=== PATIENT | female | born 1990 | race African-American/Black ===

== ENCOUNTER 2023-08-29 05:53 | Emergency (ER) | payer BC ==
--- OUTSIDE RECORDS SUMMARY | 2023-08-29 05:58 | XMS REPORT | Clinical Summary ---
:1990 Author Organization [facility] MD Lou [facility] Address [address] [place] [address] Care Team Providers Name Role Phone Marjorie Vee MD Unavailable [phone] Yvan Isaac MD Primary Care Provider Allergies No known active allergies Medications Medication Sig Dispensed Refills Start Date End Date Status ondansetron (ZOFRAN-ODT) Dissolve 1 30 tablet 5 08/20/2023 Active 8 mg disintegrating tablet (8 mg) on tabletIndications: the tongue every Adenocarcinoma of small 8 (eight) hours intestine as needed for nausea or vomiting (First choice). prochlorperazine Take 1 tablet 60 tablet 5 08/20/2023 Active (Compazine) 10 mg (10 mg) by mouth tabletIndications: every 6 (six) Adenocarcinoma of small hours as needed intestine for nausea or vomiting. 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 Encounters Date Type Department Care Team Description 08/25/2023 Infusion Ambulatory Treatment Yvan Isaac, Adenoca rcinoma of 5:00 PM [facility] Center - Anna Marie joyner MD small intestine [address] [facility], [address]th Tor or [place] [address] 08/25/2023 Travel 08/25/2023 Orders Only Gastrointestinal [address]ra [address] Diao Stella, Adenocarcinoma of [address] [facility] small intestine Main Bldg, 7th Floor (Primary Dx) [place] [address] 08/23/2023 Infusion Ambulatory Treatment Yvan Isaac, Adenoca rcinoma of 3:00 PM [facility]ERCISE INSTRUCT Center - [facility] small intestine [address] Ana, (Primary Dx) [facility], 8th Tor or Gertrude Esteban RN Elevator T - [place] [address] 08/23/2023 Hospital Encounter Diagnostic Laboratory Yvan Isaac, Adenocarcinoma of small intestine; 1:25 PM EXERCISE INSTRUCT Center Secondary malignant neoplasm of bilateral ovaries - [address] Discharge Disposition: Home 08/23/2023 [facility] 11:59 PM [place] [id number] EXERCISE INSTRUCT 08/23/2023 Travel 08/23/2023 Orders Only Ambulatory Treatment Flori Lee ry malignant Center - [facility] RAUL Dyer neoplasm of bilateral [address] ovaries (Primary Dx) [facility], 8th [place] [address] 08/09/2023 Ancillary X-Ray Outpatient Ezra ter Yvan Isaac, Malignant neoplasm of 4:30 PM EXERCISE INSTRUCT Procedure [address] colon, not otherwise [facility], 7th Tor or specified Elevator T [place] [id number] 08/09/2023 Follow-Up Colorectal Center - Yvan Isaac, Adenocar cinoma of small intestine (Primary Dx); 1:20 PM EXERCISE INSTRUCT Medical Oncology Malignant neoplasm of colon, not otherwise specified; [address] Secondary malignant neoplasm of retroperitoneum and peritoneum; Main Bldg, 7th Floor Secondary malignant neoplasm of [place] [address] 08/09/2023 Travel 08/02/[address] Imaging Ryan, Malignant neoplasm of 4:45 PM EXERCISE INSTRUCT Procedure [address] SHELBY Thomas colon, not otherwise [facility], 7th Tor [place] [address] 08/02/2023 Hospital Encounter Diagnostic Laboratory Ryan Malignant neoplasm of colon, not otherwise specified 10:45 AM [place] SHELBY Thomas Discharge Disposition: Home EXERCISE INSTRUCT - [address] 08/02/2023 Main Bldg, Elevator A 11:59 [place] [address] EXERCISE INSTRUCT 08/02/2023 Office Visit Colorectal Center - Yvan Isaac, Adenocar cinoma of 9:20 AM EXERCISE INSTRUCT Medical Oncology small intestine [address] (Primary Dx) Main Bldg, 7th [place] [address] 08/02/2023 Travel 08/01/2023 Orders Only Colorectal Center - Lois Davis t neoplasm of Medical Oncology SHELBY Thomas colon, not otherwise [address] specified (Primary Main Bldg, 7th Floor Dx) [place] [address] 08/01/2023 Orders Only Colorectal Center - Lois Davis t neoplasm of Medical Oncology SHELBY Thomas colon, not otherwise [address] specified (Primary Main Bldg, 7th Floor Dx) [place] [address] 07/31/2023 NPR MDA PATIENT ACCESS Yvan Isaac, 9:00 AM MAGALY JOHNSON 07/11/2023 Lab Requisition [facility] Satish [facility]es [facility] Ancillary Image Library Yvan Isaac, Cancer 2:45 AM CDT [place] [address] 07/07/2023 Ancillary Image Library Yvan Isaac, Cancer 2:40 AM CDT [place] [address] 07/07/2023 Ancillary Image Library Yvan Isaac, Cancer 2:35 AM CDT [place] [address] 07/07/2023 Ancillary Image Library Yvan Isaac, Cancer 2:30 AM CDT [place] [address] 07/07/2023 Ancillary Image Library Yvan Isaac, Cancer 2:25 AM CDT [place] [address] 07/07/2023 Ancillary Image Library Yvan Isaac, Cancer 2:20 AM CDT Procedure [address] [place] [address] 07/07/2023 Ancillary Image Library Yvan Isaac, Cancer 2:15 AM CDT Procedure [address] [place] [address] 07/07/2023 Ancillary Image Library Yvan Isaac, Cancer 2:10 AM CDT Procedure [address] [place] [address] 07/07/2023 Ancillary Image Library Yvan Isaac, Cancer 2:05 AM CDT Procedure [address] [place] [address] 07/07/2023 Ancillary Image Library Yvan Isaac, Cancer 2:00 AM CDT Procedure [address] [place] [address] 07/07/2023 Ancillary Image Library Yvan Isaac, Cancer 1:55 AM CDT Procedure [address] [place] [address] 06/30/2023 Travel after 08/29/2022 Surgical History Surgery Date Site/Laterality Comments LAPAROSCOPIC RESECTION SMALL BOWEL 01/23/2023 - 02/22/2023 OOPHORECTOMY BILATERAL 06/27/2023 Bilateral Medical History Medical History Date Comments Essential (primary) hypertension 2017 Anxiety disorder 2015 Family History Medical History Relation Name Comments Lung cancer Father Breast cancer Paternal Aunt Lung cancer Paternal Aunt Relation Name Status Comments Father Paternal Aunt Social History Tobacco Use Types Packs/Day Years Used Date Smoking Tobacco: Never Passive Smoke Exposure: Never Smokeless Tobacco: Never Tobacco Cessation: Counseling Given: No Alcohol Use Standard Drinks/Week Comments Not Currently 0 (1 standard drink = 0.6 oz pure alcoho l) social Sex and Gender Information Value Date Recorded Sex Assigned at Not on file Gender Identity Not on file Sexual Orientation Not on file Job Start Date Occupation Industry Not on file Not on file Not on file Obstetrics History Last Filed Vital Signs Vital Sign Reading Time Taken Comments Blood Pressure 159/78 08/25/2023 5:21 PM EXERCISE INSTRUCT Pulse 58 08/25/2023 5:21 PM EXERCISE INSTRUCT Temperature 36.7 C (98.1 F) 08/25/2023 5:21 PM EXERCISE INSTRUCT Respiratory Rate 20 08/25/2023 5:21 PM EXERCISE INSTRUCT Oxygen Saturation 91% 08/25/2023 5:21 PM EXERCISE INSTRUCT Inhaled Oxygen Concentration - - Weight 62.5 kg (137 lb 12.6 oz) 08/25/2023 5:23 PM EXERCISE INSTRUCT Height 172.7 cm (5' 8") 08/02/2023 9:14 AM EXERCISE INSTRUCT Body Mass Index 20.95 08/02/2023 9:14 AM EXERCISE INSTRUCT Plan of Treatment Date Type Department Care Team Description 08/29/[address] Yvan Isaac MD 10:00 AM EXERCISE INSTRUCT [address] Main Bldg, [address]th [place] [address] [place] [address] [phone] 09/06/2023 1:15 Appointment Diagnostic Laboratory Yvan Isaac MD PM EXERCISE INSTRUCT Center [address] [place] [address] Main dg, [place] [address] 09/06/2023 2:20 Follow-Up Colorectal Center - Medical Yvan Isaac MD PM EXERCISE INSTRUCT Oncology [address] [place] [address] Main dg, 7th [place] [address] 09/06/2023 3:00 Infusion Ambulatory Treatment Center Yvan Isaac MD PM EXERCISE INSTRUCT - [facility] [address] [place] [address] [facility], 8th Tor or Elevator T - Check In at [phone] (Fa x) [place] [address] Health Maintenance Due Date Last Done Comments COVID-19 Vaccination (#1) 1996 Procedures Procedure Name Priority Date/Time Associated Diagnosis Comme nts .CBC Routine 08/23/2023 1:51 Adenocarcinoma of Results for this PM EXERCISE INSTRUCT small intestine procedure ar e in the results section. HUMAN CHORIONIC STAT 08/23/2023 1:51 Secondary malignant Re sults for this GONADOTROPIN, PM EXERCISE INSTRUCT neoplasm of bilateral proce dure are in QUALITATIVE ovaries the results section. CARCINOEMBRYONIC Routine 08/23/2023 1:51 Adenocarcinoma of Res ults for this ANTIGEN PM EXERCISE INSTRUCT small intestine procedure ar e in the results section. PHOSPHORUS LEVEL Routine 08/23/2023 1:51 Adenocarcinoma of Res ults for this PM EXERCISE INSTRUCT small intestine procedure ar e in the results section. MAGNESIUM LEVEL Routine 08/23/2023 1:51 Adenocarcinoma of Resu lts for this PM EXERCISE INSTRUCT small intestine procedure ar e in the results section. LACTATE DEHYDROGENASE Routine 08/23/2023 1:51 Adenocarcinoma o f Results for this PM EXERCISE INSTRUCT small intestine procedure ar e in the results section. COMPREHENSIVE METABOLIC Routine 08/23/2023 1:51 Adenocarcinoma of Results for this PANEL PM EXERCISE INSTRUCT small intestine procedure ar e in the results section. COMPLETE BLOOD COUNT W/ Routine 08/23/2023 1:51 Adenocarcinoma of Results for this DIFFERENTIAL PM EXERCISE INSTRUCT small intestine procedure ar e in the results section. XR CHEST 2 VW Routine 08/09/2023 3:57 Malignant neoplasm of Re sults for this PM EXERCISE INSTRUCT colon, not otherwise procedu re are in specified the results section. VERIFY CATHETER TIP Routine 08/09/2023 1:20 Malignant neoplasm of Results for this PLACEMENT PM EXERCISE INSTRUCT colon, not otherwise procedu re are in specified the results section. CT CHEST ABDOMEN PELVIS Routine 08/02/2023 6:54 Malignant neop lasm of Results for this W WO CONTRAST PM EXERCISE INSTRUCT colon, not otherwise proced ure are in specified the results section. .CBC Routine 08/02/2023 3:14 Malignant neoplasm of Res ults for this PM EXERCISE INSTRUCT colon, not otherwise procedu re are in specified the results section. HP LB LIQUID BIOPSY Routine 08/02/2023 3:14 Malignant neoplasm of Results for this PANEL V1 INTERPRETATION PM EXERCISE INSTRUCT colon, not otherw ise procedure are in AND REPORT specified the results section. PHOSPHORUS LEVEL Routine 08/02/2023 3:14 Malignant neoplasm of Results for this PM EXERCISE INSTRUCT colon, not otherwise procedu re are in specified the results section. MAGNESIUM LEVEL Routine 08/02/2023 3:14 Malignant neoplasm of Results for this PM EXERCISE INSTRUCT colon, not otherwise procedu re are in specified the results section. LACTATE DEHYDROGENASE Routine 08/02/2023 3:14 Malignant neopla sm of Results for this PM EXERCISE INSTRUCT colon, not otherwise procedu re are in specified the results section. COMPREHENSIVE METABOLIC Routine 08/02/2023 3:14 Malignant neop lasm of Results for this PANEL PM EXERCISE INSTRUCT colon, not otherwise procedu re are in specified the results section. COMPLETE BLOOD COUNT W/ Routine 08/02/2023 3:14 Malignant neop lasm of Results for this DIFFERENTIAL PM EXERCISE INSTRUCT colon, not otherwise procedu re are in specified the results section. CARCINOEMBRYONIC Routine 08/02/2023 3:14 Malignant neoplasm of Results for this ANTIGEN PM EXERCISE INSTRUCT colon, not otherwise procedu re are in specified the results section. CARBOHYDRATE ANTIGEN Routine 08/02/2023 3:14 Malignant neoplas m of Results for this 19-9 PM EXERCISE INSTRUCT colon, not otherwise procedu re are in specified the results section. CANCER ANTIGEN 125 Routine 08/02/2023 3:14 Malignant neoplasm of Results for this PM EXERCISE INSTRUCT colon, not otherwise procedu re are in specified the results section. PATHOLOGY OUTSIDE Routine 06/27/2023 Results fo r this INTERPRETATION procedure are in the results section. OSI CT CHEST ABDOMEN Routine 06/08/2023 4:47 Cancer Resu lts for this PELVIS AM CDT procedure are i n the results section. OSI PET CT SKULL TO MID Routine 04/14/2023 4:47 Cancer R esults for this THIGH AM CDT procedure are i n the results section. OSI INTERVENTIONAL Routine 04/06/2023 4:48 Cancer Result s for this AM CDT procedure are i n the results section. OSI CHEST Routine 04/06/2023 4:48 Cancer Results for this AM CDT procedure are i n the results section. OSI US PELVIC Routine 04/03/2023 4:47 Cancer Results for this AM CDT procedure are i n the results section. OSI CT CHEST ABDOMEN Routine 03/31/2023 4:47 Cancer Resu lts for this PELVIS AM CDT procedure are i n the results section. OSI CT BRAIN Routine 03/08/2023 4:49 Cancer Results for this AM CDT procedure are i n the results section. OSI CT CHEST Routine 03/08/2023 4:49 Cancer Results for this AM CDT procedure are i n the results section. OSI ABDOMEN Routine 02/21/2023 4:48 Cancer Results for this AM CDT procedure are i n the results section. OSI CT ABDOMEN AND Routine 02/20/2023 4:48 Cancer Result s for this PELVIS AM CDT procedure are i n the results section. OSI ABDOMEN Routine 02/17/2023 4:48 Cancer Results for this AM CDT procedure are i n the results section. after 08/29/2022 Results (ABNORMAL) .CBC (08/23/2023 1:51 PM EXERCISE INSTRUCT)Only the most recent of2 resultswithin the time period is included. [facility] Method Time Signature White Blood Cell 5.4 4.1 - 08/23/2023 [facility] 10.5 K/uL 2:11 PM EXERCISE INSTRUCT Red Blood Cell 4.08 3.99 - 08/23/2023 [facility] 5.46 M/uL 2:11 PM EXERCISE INSTRUCT Hemoglobin 10.7 (L) 12.2 - 08/23/2023 [facility] 15.3 g/dL 2:11 PM EXERCISE INSTRUCT Hematocrit 34.1 (L) 36.4 - 08/23/2023 [facility] 46.8 % 2:11 PM EXERCISE INSTRUCT Mean Cell Volume 84 82 - 99 08/23/2023 [facility] fL 2:11 PM EXERCISE INSTRUCT Mean Cell 26.2 (L) 26.6 - 08/23/2023 [facility] Hemoglobin 33.2 pg 2:11 PM EXERCISE INSTRUCT Mean Cell 31.4 31.1 - 08/23/2023 [facility] Hemoglobin 35.2 g/dL 2:11 PM EXERCISE INSTRUCT Concentration RDW-SD 54.8 (H) 37.5 - 08/23/2023 [facility] 49.7 fL 2:11 PM EXERCISE INSTRUCT Red Cell Diameter 17.9 (H) 11.6 - 08/23/2023 [facility] Width 15.5 % 2:11 PM EXERCISE INSTRUCT Platelet 269 160 - 397 08/23/2023 [facility] K/uL 2:11 PM EXERCISE INSTRUCT Mean Platelet 9.3 9.1 - 08/23/2023 [facility] Volume 12.6 fL 2:11 PM EXERCISE INSTRUCT INRBC 0.0 0.0 - 0.1 08/23/2023 [facility] /100 WBC 2:11 PM EXERCISE INSTRUCT Comment: The INRBC (instrument NRBC) value reflec ts the enumeration of nucleated red blood cells contained i n a 200uL sample of whole blood analyzed by the instrumen t. This value may differ from the NRBC value reported in a manual differential, which is based on a 100 cell differentia l. Neutrophil % 58.5 43.2 - 72.7 % 08/23/2023 2:11 PM [facility] Lymphocyte % 30.6 16.8 - 46.2 % 08/23/2023 2:11 PM [facility] Monocyte % 9.0 5.1 - 12.5 % 08/23/2023 2:11 PM [facility] Eosinophil % 1.3 0.4 - 6.3 % 08/23/2023 2:11 PM [facility] Basophil % 0.4 0.2 - 1.4 % 08/23/2023 2:11 PM [facility] IGRE % 0.2 0.1 - 1.5 % 08/23/2023 2:11 PM [facility] Comment: The IGRE% includes Metamyelocyt es, Myelocytes and Promyelocytes. Neutrophil Abs 3.18 1.95 - 7.25 K/uL 08/23/2023 2:11 PM [facility] Lymphocyte Abs 1.66 1.01 - 3.24 K/uL 08/23/2023 2:11 PM [facility] Monocyte Abs 0.49 0.24 - 0.85 K/uL 08/23/2023 2:11 PM [facility] Eosinophil Abs 0.07 0.02 - 0.50 K/uL 08/23/2023 2:11 PM [facility] Basophil Abs 0.02 0.02 - 0.09 K/uL 08/23/2023 2:11 PM [facility] IG Abs 0.01 0.01 - 0.12 K/uL 08/23/2023 2:11 PM [facility] Specimen Anatomical Collection Method / Collection Time Recei cam Time (Source) Location / Volume Laterality Blood Peripheral blood Venipuncture / 08/23/2023 1:51 2022 2:06 specimen / Unknown Unknown PM EXERCISE INSTRUCT PM EXERCISE INSTRUCT Yvan Isaac MD LAB BLOOD ORDERABLES Performing Organization Address City/State/ZIP Code Phon e Number [facility] [address] [facility] [place] [address] [address] (ABNORMAL) Comprehensive Metabolic Panel (08/23/2023 1:51 PM EXERCISE INSTRUCT)Only the most recent of2 resultswithin the time period is included. P athologist Signature Bilirubin Total <0.3 <=1.2 mg/dL 08/23/2023 [facility] 2:43 PM EXERCISE INSTRUCT Comment: Direct and indirect bilirubin will not b e reported when Total bilirubin result is <0.3 mg/dL Indocyanine Green (ICG) may cause falsel y elevated bilirubin results. Total and direct bilirubin must not be measured from samples containing indocyanine green. False elevation of total bilirubin can be seen in patients with IgG concentration s above 28 g/L. This result was previously suppressed fr om the chart. Bilirubin Direct 08/23/2023 2:43 PM [facility] Comment: Direct and indirect bilirubin will not b e reported when Total bilirubin result is <0.3 mg/dL Indocyanine Green (ICG) may cause falsel y elevated bilirubin results. Total and direct bilirubin must not be measured from samples containing indocyanine green. Bilirubin Indirect 08/23/2023 2:43 PM CS T [facility] Comment: Direct and indirect bilirubin w ill not be reported when Total bilirubin result is <0.3 mg/dL eGFR 119 >=60 mL/min/1.73 sq. m 08/23/2023 2:43 P M [facility] Comment: The eGFRcr is calculated with the 2020 KD-EPI creatinine equation using creatinine, patient's age, and sex for adults 18 years of age and older. Other factors, especially muscle mass, may affect accuracy and need to be considered. According to the Kidney Disease: Improvi ng Global Outcomes (KDIGO) CKD Work Group 2012 Clinical Practice Guideline, chronic kidney disease (CKD) is defined as the abnormalities of kidney structure or fu nction, present for more than 3 months, with implications for health. CKD should be classified by cause, GFR category, and albuminuria category. KDIGO guidelines provide the following GFR categories. Stage / Description / GFR mL/min/1.73 m2 : G1* / Normal or high / >= 90 G2* / Mildly decreased / 60-89 G3a / Mildly to moderately decreased / 4 5-59 G3b / Moderately to severely decreased / 30-44 G4 / Severely decreased / 15-29 G5 / Kidney failure / <15 *In the absence of evidence of kidney da mage, neither G1 nor G2 fulfill criteria for CKD. Tot Protein 7.4 6.4 - 8.3 gm/dL 08/23/2023 2:43 PM EXERCISE INSTRUCT [facility] Comment: This result was previously supp ressed from the chart. Calcium Level Total 9.6 8.2 - 10.2 mg/dL 08/23/2023 2: 43 PM EXERCISE INSTRUCT [facility] Comment: This result was previously supp ressed from the chart. Alkaline Phosphatase 90 35 - 104 U/L 08/23/2023 2:43 PM EXERCISE INSTRUCT [facility] Comment: This result was previously supp ressed from the chart. Albumin Level 4.9 3.5 - 5.2 gm/dL 08/23/2023 2:[address] [facility] Comment: This result was previously supp ressed from the chart. AST 17 <=32 U/L 08/23/2023 2:43 PM EXERCISE INSTRUCT [facility] Comment: This result was previously supp ressed from the chart. ALT 12 <=33 U/L 08/23/2023 2:43 PM EXERCISE INSTRUCT [facility] Comment: This result was previously supp ressed from the chart. Sodium Level 142 136 - 145 mmol/L 08/23/2023 2:[address] [facility] Comment: This result was previously supp ressed from the chart. Potassium Level 4.8 (H) 3.4 - 4.5 mmol/L 08/23/2023 2:43 P M EXERCISE INSTRUCT [facility] Comment: This result was previously supp ressed from the chart. Chloride 107 98 - 107 mmol/L 08/23/2023 2:43 PM [facility]CT [facility] Comment: This result was previously supp ressed from the chart. CO2 25 22 - 29 mmol/L 08/23/2023 2:43 PM [facility]STRUCT [facility] Comment: This result was previously supp ressed from the chart. Anion Gap 10 4 - 14 mmol/L 08/23/2023 2:43 PM [facility] Comment: This result was previously supp ressed from the chart. Creatinine 0.69 0.51 - 0.95 mg/dL 08/23/2023 2:43 PM CS T [facility] Comment: This result was previously supp ressed from the chart. BUN 13 6 - 23 mg/dL 08/23/2023 2:43 PM [facility] Comment: This result was previously supp ressed from the chart. Glucose Level 84 70 - 99 mg/dL 08/23/2023 2:43 PM [facility] Comment: Effective 04/20/16, the glucose reference intervals have been updated based on [place] Diabetes Association guidelines (Standards of Medical Care in Diabetes 2016. Diabetes Care 2016; 39: S13-S22). Fasting blood glucose: Normal: 70-99 mg/dL Impaired fasting glucose (increased risk for diabetes or pre-diabetes): 100-125 mg/dL Diabetes mellitus: >/=126 mg/dL Random blood glucose: Normal: 70-199 mg/dL Note: Random glucose >100 mg/dL is assoc iated with increased risk for diabetes. This result was previously suppressed fr om the chart. Specimen Anatomical Collection Method / Collection Time Recei cam Time (Source) Location / Volume Laterality Blood Peripheral blood Venipuncture / 08/23/2023 1:51 2022 2:10 specimen / Unknown Unknown PM EXERCISE INSTRUCT PM EXERCISE INSTRUCT Yvan Isaac MD LAB BLOOD ORDERABLES Performing Organization Address City/State/ZIP Code Phon e Number [facility] [address] [facility] [place] [address] [address] U HCG (08/23/2023 1:51 PM EXERCISE INSTRUCT) [facility] gist Method Time Signature Urine Human Negative Negative 08/23/2023 [facility] Chorionic 2:40 PM EXERCISE INSTRUCT Gonadotropin Qualitative Specimen Anatomical Collection Method Collection Time Receive d Time (Source) Location / / Volume Laterality Urine (Urine Non-blood 08/23/2023 1:51 PM 2:14 Clean Catch) Collection / EXERCISE INSTRUCT PM EXERCISE INSTRUCT Unknown Narrative [facility] - 08/23/2023 2:40 PM EXERCISE INSTRUCT Very dilute urine specimens may cause fa lse negative results. Suggest repeat in 48 hours with a first morning voided urine or request quantitative serum beta HCG test. The ICON 20 hCG Serum/Urine test emplo ys a solid phase chromatographic immunoassay technology to selectively detect elevate d levels of hCG in urine with a high degree of sensitivity. Yvan Isaac MD URINE ORDERABLES Performing Organization Address [facility] e Number [address] [place] [address] [address] (ABNORMAL) Phosphorus (08/23/2023 1:51 PM EXERCISE INSTRUCT)Only the most recent of2 results within the time period is included. athologist Signature Phosphorus 4.8 (H) 2.5 - 4.5 08/23/2023 [facility] Level mg/dL 2:43 PM EXERCISE INSTRUCT Specimen Anatomical Collection Method / Collection Time Recei cam Time (Source) Location / Volume Laterality Blood Peripheral blood Venipuncture / 08/23/2023 1:51 2022 2:10 specimen / Unknown Unknown PM EXERCISE INSTRUCT PM EXERCISE INSTRUCT Yvan Isaac MD LAB BLOOD ORDERABLES Performing Organization Address [facility] e Number [address] [place] [address] [address] Magnesium (08/23/2023 1:51 PM EXERCISE INSTRUCT)Only the most recent of2 resultswithin the time period is included. athologist Signature Magnesium Level 2.1 1.6 - 2.6 08/23/2023 [facility] mg/dL 2:43 PM EXERCISE INSTRUCT Specimen Anatomical Collection Method / Collection Time Recei cam Time (Source) Location / Volume Laterality Blood Peripheral blood Venipuncture / 08/23/2023 1:51 2022 2:10 specimen / Unknown Unknown PM EXERCISE INSTRUCT PM EXERCISE INSTRUCT Yvan Isaac MD LAB BLOOD ORDERABLES Performing Organization Address [facility] e Number [address] [place] [address] [address] Lactate dehydrogenase (08/23/2023 1:51 PM EXERCISE INSTRUCT)Only the most recent of2 results within the time period is included. athologist Signature LDH 166 135 - 214 08/23/2023 2:43 [facility] U/L PM EXERCISE INSTRUCT Specimen Anatomical Collection Method / Collection Time Recei cam Time (Source) Location / Volume Laterality Blood Peripheral blood Venipuncture / 08/23/2023 1:51 2022 2:10 specimen / Unknown Unknown PM EXERCISE INSTRUCT PM EXERCISE INSTRUCT Narrative [facility] - 08/23/2023 2:43 PM EXERCISE INSTRUCT Results greater than 1651 U/L may not be reliable due to matrix effect with extended dilution as it exceeds the precision machining instructor' s recommended limit. Caution should be exercised when interpreting such values and done in conjunction with clinical context. Yvan Isaac MD LAB BLOOD ORDERABLES Performing Organization Address [facility]/[address] [place] [address] [address] (ABNORMAL) CEA (08/23/2023 1:51 PM EXERCISE INSTRUCT)Only the most recent of2 resultswithin the time period is included. [facility] gist Method Time Signature Carcinoembryonic 7.1 (H) <=3.8 08/23/2023 [facility] Antigen ng/mL 3:27 PM EXERCISE INSTRUCT Specimen Anatomical Collection Method / Collection Time Recei cam Time (Source) Location / Volume Laterality Blood Peripheral blood Venipuncture / 08/23/2023 1:51 2022 2:10 specimen / Unknown Unknown PM EXERCISE INSTRUCT PM EXERCISE INSTRUCT [facility] - 08/23/2023 3:27 PM EXERCISE INSTRUCT Reference Ranges (age 20-69 years): Non-smoker: 0.0 - 3.8 ng/mL Smoker: 0.0 - 5.5 ng/mL This test is measured by electrochemilum inescence immunoassay on [employer]rett immunoassay analyzers. Results obtained in different methods are not interchangeable. Yvan Isaac MD LAB BLOOD ORDERABLES Performing Organization Address [facility] Number [address] [place] [address] [address] XR Chest 2 Views (08/09/2023 3:57 PM EXERCISE INSTRUCT) Anatomical Region Laterality Modality Chest Digital Radiography Specimen (Source) Anatomical Collection Method Collection Time Re ceived Time Location / / Volume Laterality 08/09/2023 4:04 PM EXERCISE INSTRUCT Impressions 08/09/2023 4:05 PM EXERCISE INSTRUCT Right central catheter with its distal t ip over the SVC and without evident pneumothorax. ACTIONABLE ITEMS/RECOMMENDATIONS: None. Narrative 08/09/2023 4:05 PM EXERCISE INSTRUCT FULL RESULT: Examination: XR CHEST 2 VW on 08/09/2023 3:57 PM. Clinical History: Malignant neoplasm of colon, not otherwise specified Indication: Check Central Line placement Comparison: 04/06/2023 Technique: Posteroanterior, lateral and dual-energy radiographs of the chest Findings: Support Apparatus: Right central cathete r with its distal tip over the SVC. Lungs/Pleura/Mediastinum: No evidence of focal lung opacities. No evident pneumothorax. Heart size is normal. Procedure Note Miguel Styles MD - 08/09/2023Form atting of this note might be different from the original. FULL RESULT: Examination: XR CHEST 2 VW on 08/09/2023 3:57 PM. Clinical History: Malignant neoplasm of colon, not otherwise specified Indication: Check Central Line placement Comparison: 04/06/2023 Technique: Posteroanterior, lateral and dual-energy radiographs of the chest Findings: Support Apparatus: Right central cathete r with its distal tip over the SVC. Lungs/Pleura/Mediastinum: No evidence of focal lung opacities. No evident pneumothorax. Heart size is normal. IMPRESSION: Right central catheter with its distal t ip over the SVC and without evident pneumothorax. ACTIONABLE ITEMS/RECOMMENDATIONS: None. Yvan Isaac MD IMG DIAGNOSTIC IMAGING ORDER IRMA Tip Verification Central Vascular Access Device (08/09/2023 1:20 PM EXERCISE INSTRUCT) Narrative Yvan Isaac MD - 08/09/2023 1:20 PM EXERCISE INSTRUCT Yvan Isaac MD 08/10/2023 3:23 PM Central Vascular Access Device Tip Verif ication Performed by: Yvan Isaac MD Authorized by: Yvan Isaac MD CVAD Properties Date device placed: Unknown Device placement location: Outside fac ility Catheter Type: Implanted venous port Catheter lumen: Single lumen Vein location: Internal jugular vein Laterality: Right Tip Verification Properties Tip location per report: Superior vena cava Tip in good position and cleared for inf usion Yvan Isaac MD IV THERAPY ORDERABLES CT Chest Abdomen Pelvis with and without Contrast (08/02/2023 6:54 PM EXERCISE INSTRUCT) Anatomical Region Laterality Modality Abdomen, Pelvis, Chest Computed Tomograp hy Specimen (Source) Anatomical Collection Method Collection Time Re ceived Time Location / / Volume Laterality 08/03/2023 9:00 AM EXERCISE INSTRUCT Impressions 08/03/2023 12:49 PM EXERCISE INSTRUCT 1. 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 2. Compared to the most recent outside CT examination on June 08, 2023, interval resection of previously identified bilateral ovarian metastasis. 3. There is a small peritoneal nodule in the cul-de-sac adjacent to surgical clips most likely represent residual peritoneal drop metastasis. Mild stranding of the mesenteric fat in the anterior abdom en could be postsurgical or represent ad ditional sites of low volume peritoneal disease. No significant ascites. 4. Scattered prominent mesenteric lymp h nodes are indeterminate. No thoracic, retroperitoneal or iliac adenopathy. 5. Few tiny indeterminate hypodense le sions in the liver and few tiny scattered pulmonary nodules can be followed to assess stability. ACTIONABLE ITEMS/RECOMMENDATIONS: None. I personally reviewed these image(s) abdi ng with the resident's/fellow's interpretations, certify that if a procedure was performed I was physically present, and agree with the final report. Narrative 08/03/2023 12:49 PM EXERCISE INSTRUCT FULL RESULT: Examination: CT CHEST ABDOMEN PELVIS W W O CONTRAST on 08/02/2023 6:54 PM. Clinical History: Malignant neoplasm of colon. Review of available clinical notes in care everywhere indicates diagnosis of the jejunal and not colon carcinoma. Indication: restaging new patient Comparison: Outside CT chest abdomen pel vis on 06/08/2023 and 03/31/2023. PET/CT on 04/14/2023 Technique: CT CHEST ABDOMEN PELVIS W WO CONTRAST. Findings: CHEST: Lower neck: Small subcentimeter hypodens ity noted within the left posterior thyroid lobe. Lungs and Pleura: There are few punctate pulmonary nodule noted within the right middle lobe (series 303 image 55) which remains unchanged compared to prior 2 examinations. No pleural effusion. Cardiomediastinum: The heart is normal i n size. No pericardial effusion. Lymph nodes: No lymphadenopathy. ABDOMEN AND PELVIS: Hepatobiliary: Tiny less than 5 mm indet erminate low-attenuation lesions noted in the hepatic dome #138 and 147 were present on the prior study. Area of fatty infiltration along the falciform ligament # 167. Previously identified 2 cm hypodens e linear area within posterior aspect of the right hepatic lobe is not well-visualized on current examination, likely represented a perfusion abnormality. No biliary dilatation. No cholecystitis. Spleen: No splenomegaly. Multiple small enhancing nodules noted along the anterior-inferior aspect of the spleen, likely splenules (series 302 image 168 and 181). Pancreas: No mass or ductal dilatation. Adrenal Glands: No mass. Kidneys, Ureters, Bladder: No hydronephr osis. No suspicious renal lesion. No bladder mass. Gastrointestinal Tract: Focal small marie l mass noted on the baseline February 20, 2023 examination was resected in the interval. No evidence of small or large large bowel dilatation or focal bowel dilatation. Pelvic Organs: The uterus is still prese nt. Interval removal of previously seen multiseptated bilateral ovarian masses consistent with ovarian metastasis. No residual lesion identified within the adnexa. Peritoneum/Retroperitoneum: No significa nt ascites. Persistent 1.7 cm peritoneal nodule in t he cul-de-sac abutting the anterior wall of the rectum and posterior aspect of the uterine cervix #238 most likely represent a peritoneal drop deposit. There is m ild stranding of the mesenteric fat in t he mid anterior abdomen for example #208. Lymph Nodes: Multiple prominent mesenter ic lymph nodes noted in the mid abdomen, for example on series 302 image 206 measuring 0.7 x 1.5 cm (not well-visualized on prior examination). No retroperitoneal or iliac adenopathy. MUSCULOSKELETAL: No suspicious skeletal lesion. Procedure Note Jacinta Murguia MD - 08/03/2023Forma tting of this note might be different from the original. FULL RESULT: Examination: CT CHEST ABDOMEN PELVIS W W O CONTRAST on 08/02/2023 6:54 PM. Clinical History: Malignant neoplasm of colon. Review of available clinical notes in care everywhere indicates diagnosis of the jejunal and not colon carcinoma. Indication: restaging new patient Comparison: Outside CT chest abdomen pel vis on 06/08/2023 and 03/31/2023. PET/CT on 04/14/2023 Technique: CT CHEST ABDOMEN PELVIS W WO CONTRAST. Findings: CHEST: Lower neck: Small subcentimeter hypodens ity noted within the left posterior thyroid lobe. Lungs and Pleura: There are few punctate pulmonary nodule noted within the right middle lobe (series 303 image 55) which remains unchanged compared to prior 2 examinations. No pleural effusion. Cardiomediastinum: The heart is normal i n size. No pericardial effusion. Lymph nodes: No lymphadenopathy. ABDOMEN AND PELVIS: Hepatobiliary: Tiny less than 5 mm indet erminate low-attenuation lesions noted in the hepatic dome #138 and 147 were present on the prior study. Area of fatty infiltration along the falciform ligament #167. Previously identified 2 cm hypodense linear area wi thin posterior aspect of the right hepatic lobe is not well-visualized on current examination, likely represented a perfusion abnormality. No biliary dilatation. No cholecystitis. Spleen: No splenomegaly. Multiple small enhancing nodules noted along the anterior-inferior aspect of the spleen, likely splenules (series 302 image 168 and 181). Pancreas: No mass or ductal dilatation. Adrenal Glands: No mass. Kidneys, Ureters, Bladder: No hydronephr osis. No suspicious renal lesion. No bladder mass. Gastrointestinal Tract: Focal small marie l mass noted on the baseline February 20, 2023 examination was resected in the interval. No evidence of small or large large bowel dilatation or focal bowel dilatation. Pelvic Organs: The uterus is still prese nt. Interval removal of previously seen multiseptated bilateral ovarian masses consistent with ovarian metastasis. No residual lesion identified within the adnexa. Peritoneum/Retroperitoneum: No significa nt ascites. Persistent 1.7 cm peritoneal nodule in t he cul-de-sac abutting the anterior wall of the rectum and posterior aspect of the uterine cervix #238 most likely represent a peritoneal drop deposit. There is mild stranding of the mesenteric fat in the m id anterior abdomen for example #208. Lymph Nodes: Multiple prominent mesenter ic lymph nodes noted in the mid abdomen, for example on series 302 image 206 measuring 0.7 x 1.5 cm (not well-visualized on prior examination). No retroperitoneal or iliac adenopathy. MUSCULOSKELETAL: No suspicious skeletal lesion. IMPRESSION: 1. 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 2. Compared to the most recent outside C T examination on June 08, 2023, interval resection of previously identified bilateral ovarian metastasis. 3. There is a small peritoneal nodule in the cul-de-sac adjacent to surgical clips most likely represent residual peritoneal drop metastasis. Mild stranding of the mesenteric fat in the anterior abdomen could be postsurgical or represent additional sit es of low volume peritoneal disease. No significant ascites. 4. Scattered prominent mesenteric lymph nodes are indeterminate. No thoracic, retroperitoneal or iliac adenopathy. 5. Few tiny indeterminate hypodense lesi ons in the liver and few tiny scattered pulmonary nodules can be followed to assess stability. ACTIONABLE ITEMS/RECOMMENDATIONS: None. I personally reviewed these image(s) abdi ng with the resident's/fellow's interpretations, certify that if a procedure was performed I was physically present, and agree with the final report. Martha RYAN IMG CT ORDERABLES LB Liquid Biopsy Panel V1 Interpretation and Report (08/02/2023 3:14 PM EXERCISE INSTRUCT) Component Value Ref Test Analysis Performed At [facility] gist Range Method Time Signature MD Jamil Lay [facility] [id number] MOLECULAR Biopsy Result 11:42 PM DIAGNOSTICS Liquid Biopsy Panel-70 EXERCISE INSTRUCT Clinical test requisition fo r mutation studies on the following genes was received: APC, BRAF, NRAS, PIK3CA, TP53 A next generation sequencing (NGS)-based analysis for the detection of somatic mutations in 70 genes that includes copy number gains in 19 genes and gene fusions in 6 genes was performed on the ipadio ing cell free DNA (cfDNA) is olated from plasma in our CLIA-certified molecular diagnostics laboratory. Interpretative findings are reported in the gene summary table(s) below followed by specific detail s of detected variants, copy number gains and/or gene fusion s. Interpretation Sexton: Circled/Bold: Mutation, copy number gain, or fusion detecte d Underlined: Testing requested (ordered gene) Asterisk: Additional confirmation studies in progress GENE summary: FINDINGS: Copy Number Variations None identified Somatic Mutations None identified Gene Fusions None identified COMMENTS: Lack of detectable genomic a berrations may be due to low levels of tumor DNA in circulation. Adequate genomic profiling may require testing of tissue - clinical correlation is advised. Cancer type: Metastatic adenocarcinoma Comparison with tissue sequencing: Not available Methodology: Test Platform: Next generati on sequencing (NGS) using circulating cell-free DNA (cfDNA) obtained from plasma is performed to screen for single nucleotide variants (SNVs), insertions/deletions, copy numb er gains and gene fusions in the genes listed below. The genomic reference sequence used is GRCh37/hg19. The software versions used for this analysis are Ensogo Software 2.1.0, Flite a Realtime Analysis Software 2.4.11 and Bioinformatics Pipeline 3.3.1. Detailed information about the signal-processing, base calling, alignment, variant calling, and copy number calling and fusion detection algorithms are available upon request. Analytical sensitivity and a dditional details: For this assay, sensitivity of detection is related in part to depth of coverage and the amount of input cfDNA. We determined the effective lower limit of detection of this assay (rona lytical sensitivity) for single nucleotide variations, insertions/deletions and gene fusions to be 0.3% mutation allelic frequency (MAF) for 30ng cfDNA input and 1% MAF for 5 ng cfDNA input by taking int o consideration the depth of coverage at a given base. Sensitivity for amplifications depends on both input cfDNA and the amplitude of the gene amplification. The presence of amplification is determined by individual gene Z-score and copy number threshold derived from healthy normal cfDNA. A nominal threshold of 2.5 copies is used to restrict reporting to high-confidence calls. Details and limitations of the test: - The primary purpose of thi s panel is to detect somatic mutations in genes involved in oncogenesis of this patient's tumor. This panel is not designed to detect germline variants for familial tumors, a nd the test or results there of should not be used to detect germline variants for hereditary cancer syndromes. - The assay is designed to d etect point mutations, insertion/deletions, copy number gains (amplifications) and gene fusions. Quality and quantity of cfDNA can influence variant detection. - False negative results can be obtained at low cfDNA inputs . - Copy number gains below 2. 5 cut-off not confirmable by independent, orthogonal methods may be excluded as the clinical significance and reliability of such low level calls are not clear. Correlation w ith traditional methods of c opy number assessment such as fluorescent in situ hybridization (FISH) on tumor tissue is recommended if clinical action based on findings is being considered. - Since hematopoietic cells can also contribute to cfDNA, the possibility that any mutation detected may represent clonal hematopoiesis of indeterminate potential (CHIP) or a clonal hematologic disorder cannot be ruled out. Report annotation and genera tion software: A post-variant calling analysis and annotation tool, PerfectSearch version 1.10.1.586, was used in the construction of this report. Sequencing coverage of the g kathleen: The following table describes adequacy of coverage in this assay across the full set of covered genes, exons, and codons, for genes with exon-level sequencing on this [facility]. Adequately covered amp licons are defined as those having total coverage depth of greater than or equal to 250 reads, or for which an orthogonal mutation analysis testing has been performed. Presen ce of mutations outside the tested regions listed belo w cannot be ruled out. Coverage by gene and codon(s) tested for adequate amplicons Gene Exons (codons) tested AKT1 (NM_005163) 3 (16-59), 6 (146-189) ALK (NM_004304) 18-29 (972-1621) APC (NM_000038) 2-16 (1-2844) AR (NM_000044) 1-8 (1-921) ARAF (NM_001654) 7 (186-233), 14 (474-517) ARID1A (NM_006015) 1-3 (126-601), 6-8 (721-911), 11-20 (997- 2776) JARRET (NM_000051) 8 (301-355), 55 (4868-2990), 63 (1469-0262) BRAF (NM_004333) 1-18 (1-767) BRCA1 (NM_007294) 2-23 (1-1864) BRCA2 (NM_000059) 2-27 (1-3419) CCND1 (NM_053056) 1-2 (1-138), 4-5 (192-296) CCND2 (NM_001759) 1-2 (1-137), 5 (241-290) CCNE1 (NM_001238) 4-6 (38-154), 8-12 (204-411) CDK4 (NM_000075) 2-8 (1-304) CDK6 (NM_001259) 2-8 (1-327) CDKN2A (NM_000077) 1-2 (1-153) CTNNB1 (NM_001904) 3 (5-81) DDR2 (NM_006182) 14-17 (577-811) EGFR (NM_005228) 1-28 (1-1211) ERBB2 (NM_004448) 2-27 (25-1256) ESR1 (NM_000125) 5 (366-412), 6-8 (416-596) EZH2 (NM_004456) 16 (618-649) FBXW7 (NM_033632) 9-10 (413-548), 12 (619-708) FGFR1 (NM_015850) 2-4 (1-148 ), 6-8 (206-359), 10-13 (427-616), 15 (658-681), 17-18 (727-821) FGFR2 (NM_000141) 2-13 (1-621), 15-18 (663-822) FGFR3 (NM_000142) 2-18 (1-807) GNA11 (NM_002067) 5 (202-245) GNAQ (NM_002072) 5 (202-245) GNAS (NM_000516) 8-9 (196-240) HNF1A (NM_000545) 3-4 (176-319) HRAS (NM_005343) 2-5 (1-190) IDH1 (NM_005896) 4 (41-138) IDH2 (NM_002168) 4 (125-178) JAK2 (NM_004972) 14 (593-622) JAK3 (NM_000215) 13 (568-596) KIT (NM_000222) 1-21 (1-977) KRAS (NM_004985) 2-5 (1-189) MAP2K1 (NM_002755) 2-3 (27-146) MAP2K2 (NM_030662) 2-3 (31-150) MAPK1 (NM_002745) 1-8 (1-361) MAPK3 (NM_002746) 1-8 (1-380) MET (NM_001127500) 2-9 (1-755), 10-21 (772-1409) MLH1 (NM_000249) 12 (347-470) MPL (NM_005373) 10 (490-522) MTOR (NM_004958) 2-30 (1-1490) MYC (NM_002467) 1-3 (1-455) NF1 (NM_[id number]) 2-6 (21-2 18), 8-14 (244-547), 16-18 (574-751), 20-21 (776- 950), 24-28 (8571-5277), 30 (0711-8314), 32-50 (6358-3177), 52-55 (4524-1441), 57-58 (3023-7549) NFE2L2 (NM_006164) 2 (16-104) NOTCH1 (NM_017617) 4 (135-248), 8 (419-481), 26 (6887-3098 ), 34 (6316-2351) NOTCH2 (NM_024408) 1 (1-25), 34 (2400) NPM1 (NM_002520) 11 (283-295) NRAS (NM_002524) 2-5 (1-190) NTRK1 (NM_002529) 8-10 (284-417), 12 (452-501), 14-15 (545-6 82) NTRK3 (NM_002530) 16-17 (573-711) PDGFRA (NM_006206) 3-7 (17-3 74), 9-12 (413-596), 14-15 (631-719), 18-20 (814- 925), 22-23 (961-1090) PIK3CA (NM_006218) 2-21 (1-1069) PTEN (NM_000314) 1-2 (1-55), 4-9 (70-404) PTPN11 (NM_002834) 3 (46-111), 13 (483-533) RAD51 (NM_002875) 2-3 (1-75), 5-10 (115-340) RAF1 (NM_002880) 2-3 (1-107) , 5 (142-194), 7-8 (227-288), 10 (331-370), 15-17 (513-649) RB1 (NM_000321) 1-5 (1-180), 7-8 (203-287), 10-14 (314-463), 16-23 (474-830), 25-27 (841-929) RET (NM_020975) 9-12 (568-727), 14-16 (798-934) ROS1 (NM_002944) 31-32 (3247-3630), 34-36 (1917-7345), 38 (2 002-2045) SMAD4 (NM_005359) 3 (84-142), 5-6 (152-263), 8-12 (302-553) SMO (NM_005631) 5 (307-380), 9 (489-551) STK11 (NM_000455) 1-9 (1-434) TERT (NM_198253) 1 (1-73), 5 (651-710) TP53 (NM_000546) 2-11 (1-394) TSC1 (NM_000368) 15 (480-666), 23 (992-1165) VHL (NM_000551) 1-3 (63-214) DISCLAIMER: This test was developed, and its performance characteristics determined by the Molecular Diagnostic Laboratory ([facility]) at the [facility] [place]. It has not been cleared by the U.S. Food and Drug Administration. However, [facility] approval is not required for clinical implementation, and the test results on the ordered genes have been shown to be clinically useful. This laboratory is CAP accredited and CLIA certified to perfor m high complexity molecular testing for clinical purposes. Pathologist . 08/07/2023 MOLECULAR Signature 11:42 PM DIAGNOSTICS EXERCISE INSTRUCT Specimen Anatomical Collection Method / Collection Time Recei cam Time (Source) Location / Volume Laterality Blood Peripheral blood Venipuncture / 08/02/2023 3:14 2022 3:21 specimen / Unknown Unknown PM EXERCISE INSTRUCT PM EXERCISE INSTRUCT Martha QUINTERO MOLECULAR DIAGNOSTICS ([facility]OHNSON) Performing Organization Address City/State/ZIP Code Phon e Number MOLECULAR DIAGNOSTICS [facility] [place] [address] Molecular Diagnostics Laboratory [address] [place] 19-9 (08/02/2023 3:14 PM EXERCISE INSTRUCT) athologist Signature [place] 19-9 17.6 <=35.0 U/mL 08/02/2023 [facility] 4:38 PM EXERCISE INSTRUCT [facility] Specimen Anatomical Collection Method / Collection Time Recei cam Time (Source) Location / Volume Laterality Blood Peripheral blood Venipuncture / 08/02/2023 3:14 2022 3:21 specimen / Unknown Unknown PM EXERCISE INSTRUCT PM EXERCISE INSTRUCT Narrative [facility] - 3 4:38 PM EXERCISE INSTRUCT Results greater than 9500 U/mL may not b e reliable due to matrix effect with extended dilution as it exceeds the precision machining instructor' s recommended limit. Caution should be exercised when interpreting such values and done in conjunction with clinical context. This test is measured by electr ochemiluminescence immunoassay on [employer] immunoassay analyzers. Results obtained in different methods are not interchangeable. Martha RYAN LAB BLOOD ORDERABLES Performing Organization Address [facility] Phon e Number [facility] Unless otherwise noted, [address] all lab tests performed by: Division of Pathology and Laboratory Medicine [address] [place] [address] [place] 125 (08/02/2023 3:14 PM EXERCISE INSTRUCT) athologist Signature Cancer Antigen 12.7 <=38.0 08/02/2023 [facility] 125 U/mL 4:38 PM EXERCISE INSTRUCT [facility] Specimen Anatomical Collection Method / Collection Time Recei cam Time (Source) Location / Volume Laterality Blood Peripheral blood Venipuncture / 08/02/2023 3:14 2022 3:21 specimen / Unknown Unknown PM EXERCISE INSTRUCT PM EXERCISE INSTRUCT Narrative [facility] - 3 4:38 PM EXERCISE INSTRUCT Results greater than 11,500.0 U/mL may n ot be reliable due to matrix effect with extended dilution as it exceeds the manu facturer's recommended limit. Caution should be exercised when interpreting such valu es and done in conjunction with clinical context. This test is measured by electr ochemiluminescence immunoassay on [employer] immunoassay analyzers. Results obtained in different methods are not interchangeable. Reference intervals are not available fo r male patients. Results should be interpreted in conjunction with clinical context. Martha RYAN LAB BLOOD ORDERABLES Performing Organization Address City/[facility] Phon e Number [facility] Unless otherwise noted, [address] all lab tests performed by: Division of Pathology and Laboratory Medicine [address] [facility] Outside Interpretation (06/27/2023) Component Value Ref Test Analysis Performed Pathologis t Range Method Time At Signature Materials Accession#, Stained, Block, Unstained Collected Received 07/12/2023 [facility] Received A. [id number], 30 SS, 0 BLOCKS, 0 USS 06/27/2023 4:33 PM CDT Diagnosis Thirty outside slides ([id number], 06/27/2023), designated as follows: 07/12/2023 [facility] Electronically 4:33 PM signed by Avila, Ovary and fallopian tube, left (A.1-1 to A.8-1): CDT MD Juancarlos on 07/12/2023 at METASTATIC MODERATELY DIFFER ENTIATED ADENOCARCINOMA INVOLVING OVARIAN PARENCHYMA WITH MARKED NECROSIS. 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 Accessory spleens Segment of small bowel with fibrous serositis, no carcinoma identified. Ovary and fallopian tube, right (D.1-1 to D.6-1) METASTATIC MODERATELY DIFFER ENTIATED ADENOCARCINOMA WITH MUCINOUS FEATURES INVOLVING OVARIAN PARENCHYMA. Fallopian tube, unremarkable. Uterus, posterior mass ( (E.1-1) METASTATIC MODERATELY DIFFER ENTIATED ADENOCARCINOMA INVOLVING FIBRO-CONNECTIVE TISSUE AND MUSCLE. Skin, abdominal wall scar (F.1-1 to F.3-1) METASTATIC MODERATELY DIFFERENTIATED ADENOCARCINOMA INVOLVIN G SCAR TISSUE. Fat necrosis and foreign body giant cell reaction. HW/PXR/FSE Biomarker Metastatic adenocarcinoma tumor block: A7 07/12/2023 [facility] Block(s) Normal: B1 4:33 PM CDT Disclaimer "Some tests 07/12/2023 [facility] reported here may 4:33 PM have been CDT developed and performance characteristics determined by [facility] Pathology and Laboratory Medicine. These tests have not been specifically cleared or approved by the U.S. Food and Drug Administration. If applicable, controls were reviewed and showed appropriate reactivity." Specimen (Source) Anatomical Collection Method Collection Time Re ceived Time Location / / Volume Laterality Tissue specimen 06/27/2023 07/11/2023 1 1:07 (specimen) AM CDT Minh Khalil MD LAB PATHOLOGY ORDERABLES Performing Organization Address City/State/ZIP Code Phon e Number [facility] [place] [address], [place] [address] CHEST ABDOMEN PELVIS (06/08/2023 4:47 AM CDT)Only the most recent of2 resultswithin the time period is included. Specimen (Source) Anatomical Location Collection Method / Collectio n Time Received Time / Laterality Volume Narrative Systemgenerated, Documentation - 023 4:47 AM CDT Study acquired at another institution. For comparison only. No MD [place] originated interpretation requested or a vailable. Yvan Isaac MD IMG OUTSIDE IMAGE ORDERABLES [facility] PET CT Skull to Mid Thigh (04/14/2023 4:47 AM CDT) Specimen (Source) Anatomical Location Collection Method / Collectio n Time Received Time / Laterality Volume Narrative Systemgenerated, Documentation - 023 4:47 AM CDT Study acquired at another institution. For comparison only. No MD [place] originated interpretation requested or a vailable. Yvan Isaac MD IMG OUTSIDE IMAGE ORDERABLES OSI Chest (04/06/2023 4:48 AM CDT) Specimen (Source) Anatomical Location Collection Method / Collectio n Time Received Time / Laterality Volume Narrative Systemgenerated, Documentation - 023 4:48 AM CDT Study acquired at another institution. For comparison only. No MD [place] originated interpretation requested or a vailable. Yvan Isaac MD IMG OUTSIDE IMAGE ORDERABLES OSI Interventional (04/06/2023 4:48 AM CDT) Specimen (Source) Anatomical Location Collection Method / Collectio n Time Received Time / Laterality Volume Narrative Systemgenerated, Documentation - 023 4:49 AM CDT Study acquired at another institution. For comparison only. No MD [place] originated interpretation requested or a vailable. Yvan Isaac MD IMG OUTSIDE IMAGE ORDERABLES OSI US Pelvic (04/03/2023 4:47 AM CDT) Specimen (Source) Anatomical Location Collection Method / Collectio n Time Received Time / Laterality Volume Narrative Systemgenerated, Documentation - 023 4:47 AM CDT Study acquired at another institution. For comparison only. No MD [place] originated interpretation requested or a vailable. Yvan Isaac MD IMG OUTSIDE IMAGE ORDERABLES OSI CT Chest (03/08/2023 4:49 AM CDT) Specimen (Source) Anatomical Location Collection Method / Collectio n Time Received Time / Laterality Volume Narrative Systemgenerated, Documentation - 023 4:49 AM CDT Study acquired at another institution. For comparison only. No MD [place] originated interpretation requested or a vailable. Yvan Isaac MD IMG OUTSIDE IMAGE ORDERABLES OSI CT Brain (03/08/2023 4:49 AM CDT) Specimen (Source) Anatomical Location Collection Method / Collectio n Time Received Time / Laterality Volume Narrative Systemgenerated, Documentation - 023 4:49 AM CDT Study acquired at another institution. For comparison only. No MD [place] originated interpretation requested or a vailable. Yvan Isaac MD IMG OUTSIDE IMAGE ORDERABLES OSI Abdomen (02/21/2023 4:48 AM CDT)Only the most recent of2 resultswithin the time period is included. Specimen (Source) Anatomical Location Collection Method / Collectio n Time Received Time / Laterality Volume Narrative Systemgenerated, Documentation - 023 4:48 AM CDT Study acquired at another institution. For comparison only. No MD [place] originated interpretation requested or a vailable. Yvan Isaac MD IMG OUTSIDE IMAGE ORDERABLES OSI CT Abdomen and Pelvis (02/20/2023 4:48 AM CDT) Specimen (Source) Anatomical Location Collection Method / Collectio n Time Received Time / Laterality Volume Narrative Systemgenerated, Documentation - 023 4:48 AM CDT Study acquired at another institution. For comparison only. No MD [place] originated interpretation requested or a vailable. Yvan Isaac MD IMG OUTSIDE IMAGE ORDERABLES after 08/29/2022 Insurance Payer Benefit Plan / Subscriber ID Effective Dates Phone Addre ss Type Group [place] POS [id number] 2023-Present [address] PPO [facility] [place] [id number] Deepthi Lay Personal/Famil Self [address] y (Home) [place] [phone] Care Teams Bean Weigher Relationship Specialty Start Date End Date Marjorie Vee PCP - External Hematology and Oncology 06/30/23 MD Georgina Referring [address] [facility] [address] [place] [phone] Yvan Isaac MD PCP - General Gastrointestinal Medical 07/03/23 Oncology [facility] [place] [address]
--- OUTSIDE RECORDS SUMMARY | 2023-08-29 05:59 | XMS REPORT | Continuity of Care Document ---
:1990 Author Organization [facility] t Address [address] [place] [address] [address] [place] [address] Care Team Providers Name Role Phone [phone] Primary Care Physician Unavailable Yvan Ocampo MD Attending Clinician Mckinley CARTER, Ese Conroy Attending Clinician Unavailable YVAN OCAMPO Attending Clinician Unavailable Stella Perez RPH Attending Clinician Unavailable Ana CARTER, Gertrude Esteban Attending Clinician Jesus CARTER, Gomez Attending Clinician Unavailable GC_GCBZW_Kadiyala_S Attending Clinician Unavailable MARTHA PAEZ Attending Clinician Unavailable Ryan RYAN, Martha Attending Clinician Claudio Mendes MD Attending Clinician Remi JOHNSON, Minh Foster Attending Clinician GC_GCBZW_Kadiyala_S Admitting Clinician Unavailable Payers Payer Name Policy Type Policy Number Effective Date Expiration Date S [place] [id number] 2023 00:00[place]00 [place] Problems Condition Condition Condition Status Onset Resolution Last Treating Co mments Source Name Details Category Date Date Treatment Clinician Date 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 Family History Family Member Diagnosis Comments Start Date Stop Date Source Natural [facility] Paternal aunt Breast cancer Universi ty [facility] Paternal aunt Lung cancer [facility] Social History Social Habit Start Date Stop Date Quantity Comments Source Sexual orientation Univer sity [facility] MD Lou [facility] Tobacco use and 2023-08-02 2023-08-02 Smokeless Universit y of exposure 00:00:00 00:00:00 tobacco non-user [facility] Alcohol intake 2023-08-02 2023-08-02 Ex-drinker [facility] 00:00:00 00:00:00 (finding) [place] MD Lou [facility] History of Social 2023-08-02 2023-08-02 Univers ity of function 00:00:00 00:00:00 [place] MD Lou [facility] Alcohol Comment 2023-08-02 2023-08-02 social Universit y of 00:00:00 00:00:00 [place] MD Lou [facility] Sex Ass[birth year] At [birth year] Universit y of 00:00:00 00:00:00 [place] Carmine [facility] Smoking Status Start Date Stop Date Source Never smoked tobacco [facility] Medications Ordered Filled Start Stop Current Ordering Indication Dosage Frequency Signature Comments Components Source Medication Medication Date Date Medication? Clinician (SIG) Name Name ondansetron 2022-09 Yes Adenocarcin 8mg Dissolve 1 Univers (ZOFRAN-ODT 1-26 rafael of tablet (8 i ty of ) 8 mg 00:00: [place] mg) [place] disintegrat 00 intestine tongue M D ing tablet every 8 Dalton o (eight) n hours as Cancer needed for Center nausea or vomiting (First choice). prochlorper 2022-09 Yes Adenocarcin 10mg Take 1 Univers azine 1-26 rafael of tablet (10 ity of (Compazine) 00:00: small mg) by Rachid as 10 mg 00 intestine mouth tablet every 6 Anderso (six) n hours as Cancer needed for Center nausea or vomiting. (Second Choice) Vital Signs Vital Name Observation Time Observation Value Comments Source Body weight 2023-08-25 23:23:00 62.5 kg [facility] BMI 2023-08-25 23:23:00 20.95 kg/m2 [facility] Systolic blood 2023-08-25 23:21:32 159 mm[Hg] Univer sity of pressure [place] [facility] Diastolic blood 2023-08-25 23:21:32 78 mm[Hg] Unive rsity of pressure [place] [facility] Heart rate 2023-08-25 23:21:32 58 /min [facility] Body temperature 2023-08-25 23:21:32 36.72 Melody [facility] Respiratory rate 2023-08-25 23:21:32 20 /min [facility] Oxygen saturation in 2023-08-25 23:21:32 91 /min University Arterial blood by Asya mora Pulse oximetry [facility] Body height 2023-08-02 15:14:00 172.7 cm [facility] Procedures Procedure Date / Time Performing Clinician Source Performed COMPLETE BLOOD COUNT W/ 2023-08-23 19:51:00 Yvan Ocampo [facility] DIFFERENTIAL [facility] COMPREHENSIVE METABOLIC 2023-08-23 19:51:00 Yvan Ocampo [facility] PANEL [facility] LACTATE DEHYDROGENASE 2023-08-23 19:51:00 Yvan Ocampo [facility] MAGNESIUM LEVEL 2023-08-23 19:51:00 Yvan Ocampo [place] [facility] PHOSPHORUS LEVEL 2023-08-23 19:51:00 Yvan Ocampo [facility] CARCINOEMBRYONIC ANTIGEN 2023-08-23 19:51:00 [facility] Ocampo [facility] CH[facility]IONIC 2023-08-23 19:51:00 Poncho Yvan [facility] GONADOTROPIN, QUALITATIVE MD [facility] [place] .CBC 2023-08-23 19:51:[address] [facility] XR CHEST 2 VW 2023-08-09 21:57:[address] [facility] VERIFY CATHETER TIP 2023-08-09 19:20:00 Yvan Ocampo [facility] PLACEMENT [facility] CT CHEST ABDOMEN PELVIS W 2023-08-03 00:54:51 Martha [facility] CONTRAST [facility] MAGNESIUM LEVEL 2023-08-02 21:14:00 Martha Paez [facility] PHOSPHORUS LEVEL 2023-08-02 21:14:00 Martha Paez [facility] HP LB LIQUID BIOPSY PANEL 2023-08-02 21:14:00 Martha [facility] V1 INTERPRETATION AND MD Gonzalez n Cancer REPORT Center .CBC 2023-08-02 21:14:00 Martha Paez [facility] CANCER ANTIGEN 125 2023-08-02 21:14:00 Martha Paez y [facility] CARBOHYDRATE ANTIGEN 19-9 2023-08-02 21:14:00 Martha Paez Un iversity [facility] CARCINOEMBRYONIC ANTIGEN 2023-08-02 21:14:00 Martha Paez Uni versity [facility] COMPLETE BLOOD COUNT W/ 2023-08-02 21:14:00 Martha Paez [facility] DIFFERENTIAL [facility] COMPREHENSIVE METABOLIC 2023-08-02 21:14:00 Martha Paez [facility] PANEL [facility] LACTATE DEHYDROGENASE 2023-08-02 21:14:00 Martha Paez [facility] PATHOLOGY OUTSIDE 2023-06-27 00:00:00 Minh Khalil [facility] OSI CT CHEST ABDOMEN 2023-06-08 09:47:00 Yvan Ocampo [facility] PELVIS [facility] [place] OSI PET CT SKULL TO MID 2023-04-14 09:47:00 Yvan Ocampo [facility] THIGH [facility] er Center OSI CHEST 2023-04-06 09:48:00 Yvan Ocampo [facility] er Center OSI INTERVENTIONAL 2023-04-06 09:48:00 Yvan Ocampo [facility] er Center OSI US PELVIC 2023-04-03 09:47:00 Poncho Yvan [facility] er Center OSI CT CHEST ABDOMEN 2023-03-31 09:47:00 Yvan Ocampo [facility] PELVIS [facility] er Center OSI CT CHEST 2023-03-08 09:49:00 Poncho [facility] O[facility] CT BRAIN 2023-03-08 09:49:00 Poncho [facility] er Center OSI ABDOMEN 2023-02-21 09:48:00 Poncho [facility] Center OSI CT ABDOMEN AND PELVIS 2023-02-20 09:48:00 Yvan Ocampo [facility] er Center OSI ABDOMEN 2023-02-17 09:48:00 [place] [facility] Plan of Care Planned Activity Planned Date Details Comments Source Future Scheduled 2023-08-28 COVID-19 Vaccination Uni [facility] Test 07:14:53 (#1) [code = COVID-19 MD [facility] Vaccination (#1)] Center Encounters Start End Encounter Admission Attending Care Care Encounter Source Date/Time Date/Time Type Type Clinicians Facility Department ID 2023-08-25 2023-08-25 Infusion Yvan Ocampo 1.2.840.1 [id number] [facility] 17:00:00 18:10:25 [place] [address].1.[place] [address].2.7 [place] .3.328812 MD Sibley8 [facility] 2023-08-25 2023-08-25 Outpatient YVAN WORRELL [facility] [id number] 16:46:20 18:10:25 [facility] 2023-08-25 2023-08-25 Travel 1.2.840.1 1.2.587.380 [id number] [facility] 00:00:00 00:00:00 01035.1.1 350.1.13.41 ity of 3.412.2.7 2.[place].7.3.698 [place] .3.890301 084.8 .8 [facility] 2023-08-25 2023-08-25 Stella Carbajal 1.2.840.1 [id number] Univers 00:00:00 00:00:00 Only 42010.1.1 ity of 3.412.2.7 [place] .3.125161 MD Sibley8 [facility] 2023-08-23 2023-08-23 [facility] Yvan Ocampo 1.2.840.1 [id number] [facility] 13:25:43 23:59:00 Encounter 02015.1.1 it y of 3.412.2.7 [place] .3.117996 MD Nice [facility] 2023-08-23 2023-08-23 Outpatient YVAN WORRELL [facility] [id number] 13:25:43 23:59:00 [place] [facility] 2023-08-23 2023-08-23 [facility] PonchoYvan 1.2.840.1 [id number] [facility] 15:00:00 20:27:14 Gertrude Perez A 86871.1.1 ity of 3.412.2.7 [place] .3.949931 MD Sibley8 [facility] 2023-08-23 2023-08-23 Outpatient YVAN WORRELL [facility] [id number] 14:15:10 20:27:14 [facility] 2023-08-23 2023-08-23 Travel 1.2.840.1 [id number] Univers 00:00:00 00:00:00 23494.1.1 350.1.13.41 ity of 3.412.2.7 2.[place].7.3.698 [place] .3.186429 084.8 .8 [facility] 2023-08-23 2023-08-23 Orders Jesus, 1.2.840.1 [id number] Univers 00:00:00 00:00:00 Only Ponce 94561.1.1 ity of 3.412.2.7 [place] .3.902768 MD Sibley8 [facility] 2023-08-22 2023-08-22 Outpatient GC_GCBZW_Ka PRIV PRIV [id number] [facility] 00:00:00 00:00:00 diyala_S [id number] Medic al 2023-08-22 2023-08-22 Outpatient GC_GCBZW_Ka PRIV PRIV [id number] [facility] 00:00:00 00:00:00 diyala_S [id number] Medic al 2023-08-21 2023-08-21 Outpatient GC_GCBZW_Ka PRIV PRIV [id number] [facility] 00:00:00 00:00:00 diyala_S [id number] Medic al 2023-08-10 2023-08-10 Outpatient GC_GCBZW_Ka PRIV PRIV [id number] [facility] 00:00:00 00:00:00 diyala_S [id number] Medic mi 2023-08-09 2023-08-09 Ancillary Yvan Ocampo 1.2.840.1 [id number] [facility] 16:30:00 16:45:00 Procedure 92748.1.1 it y of 3.412.2.7 [place] .3.645698 MD Sibley8 [facility] 2023-08-09 2023-08-09 Outpatient EL YVAN OCAMPO [facility] [id number] 15:42:00 15:42:00 [facility] 2023-08-09 2023-08-09 Follow-Up Yvan Ocampo 1.2.840.1 [id number] Univers 13:20:00 14:43:51 86975.1.1 ity of 3.412.2.7 [place] .3.842101 .8 [facility] 2023-08-09 2023-08-09 Outpatient YVAN WORRELL [facility] [id number] 13:01:30 14:43:51 [facility] 2023-08-09 2023-08-09 Outpatient YVAN WORRELL [facility] [id number] 13:01:30 14:43:51 [id number] [facility] 2023-08-09 2023-08-09 Travel 1.2.840.1 1.2.864.430 [id number] Univers 00:00:00 00:00:00 84445.1.1 350.1.13.41 ity of 3.412.2.7 2.[place].7.3.698 [place] .3.649328 084.8 .8 [facility] 2023-08-02 2023-08-02 Outpatient LALITHA PAEZ [facility] [id number] MD 10:45:00 23:59:00 MARTHA ortiz 2023-08-02 2023-08-02 [facility], 1.2.840.1 [id number] Univers 10:45:00 23:59:00 Encounter Martha 73156.1.1 i ty of 3.412.2.7 [place] .3.523301 .8 [facility] 2023-08-02 2023-08-02 [facility], 1.2.840.1 [id number] Univers 16:45:00 19:10:00 Procedure Martha 53467.1.1 i ty of 3.412.2.7 [place] .3.411554 .8 [facility] 2023-08-02 2023-08-02 Outpatient LALITHA PAEZ [facility] [id number] MD 15:30:20 15:30:20 MARTHA Lou so angel 2023-08-02 2023-08-02 Office Poncho Yvan 1.2.840.1 [id number] [facility] 09:20:00 11:25:29 Visit 35911.1.1 ity of 3.412.2.7 [place] .3.411506 MD Nice [facility] 2023-08-02 2023-08-02 Outpatient LALITHA OCAMPOAPRILAN [facility] [id number] [place] 09:06:26 11:25:29 [facility] 2023-08-02 2023-08-02 Travel 1.2.840.1 1.2.070.196 [id number] Univers 00:00:00 00:00:00 90405.1.1 350.1.13.41 ity of 3.412.2.7 2.2.7.3.698 [place] .3.633987 084.8 MD Nice [facility] 2023-08-01 2023-08-01 Elodia Paez 1.2.840.1 [id number] Univers 00:00:00 00:00:00 Only Martha 82231.1.1 ity of 3.412.2.7 [place] .3.577079 MD Nice [facility] 2023-08-01 2023-08-01 Elodia Paez 1.2.840.1 [id number] Univers 00:00:00 00:00:00 Only Martha 03928.1.1 ity of 3.412.2.7 [place] .3.952149 MD Nice [facility] 2023-07-31 2023-07-31 Outpatient LALITHA OCAMPO [facility] MDA [id number] 09:16:06 09:16:09 [facility] 2023-07-31 2023-07-31 Yvan Cantrell 1.2.840.1 [id number] Univers 09:00:00 09:16:09 21677.1.1 ity of 3.412.2.7 [place] .3.048321 MD Nice [facility] 2023-07-11 2023-07-11 Lab Claudio Mendes 1.2.840.1 [id number] Univers 00:00:00 00:00:00 Teresitamarquise Minh Khalil 59338.1.1 ity of n 3.412.2.7 [place] .3.691609 .8 [facility] 2023-07-07 2023-07-07 Ancillary Yvan Ocampo 1.2.840.1 [id number] Univers 02:45:00 02:50:00 Procedure 66160.1.1 it y of 3.412.2.7 [place] .3.323223 .8 [facility] 2023-07-07 2023-07-07 Ancillary Yvan Ocampo 1.2.840.1 [id number] Univers 02:40:00 02:45:00 Procedure 34187.1.1 it y of 3.412.2.7 [place] .3.140936 .8 [facility] 2023-07-07 2023-07-07 Ancillary Yvan Ocampo 1.2.840.1 [id number] Univers 02:35:00 02:40:00 Procedure 97885.1.1 it y of 3.412.2.7 [place] .3.990710 .8 [facility] 2023-07-07 2023-07-07 Ancillary Yvan Ocampo 1.2.840.1 [id number] Univers 02:30:00 02:35:00 Procedure 12924.1.1 it y of 3.412.2.7 [place] .3.483536 .8 [facility] 2023-07-07 2023-07-07 Ancillary Yvan Ocampo 1.2.840.1 [id number] Univers 02:25:00 02:30:00 Procedure 66028.1.1 it y of 3.412.2.7 [place] .3.603355 .8 [facility] 2023-07-07 2023-07-07 Ancillary Yvan Ocampo 1.2.840.1 [id number] Univers 02:20:00 02:25:00 Procedure 45596.1.1 it y of 3.412.2.7 [place] .3.290560 .8 [facility] 2023-07-07 2023-07-07 Ancillary Yvan Ocampo 1.2.840.1 [id number] Univers 02:15:00 02:20:00 Procedure 45509.1.1 it y of 3.412.2.7 [place] .3.768563 .8 [facility] 2023-07-07 2023-07-07 Ancillary Yvan Ocampo 1.2.840.1 [id number] Univers 02:10:00 02:15:00 Procedure 10680.1.1 it y of 3.412.2.7 [place] .3.356725 .8 [facility] 2023-07-07 2023-07-07 Ancillary Yvan Ocampo 1.2.840.1 [id number] Univers 02:05:00 02:10:00 Procedure 67445.1.1 it y of 3.412.2.7 [place] .3.795278 .8 [facility] 2023-07-07 2023-07-07 Ancillary Yvan Ocampo 1.2.840.1 [id number] Univers 02:00:00 02:05:00 Procedure 54940.1.1 it y of 3.412.2.7 [place] .3.926235 .8 [facility] 2023-07-07 2023-07-07 Outpatient YVAN WORRELL [facility] MDA [id number] 02:04:25 02:04:25 [place] o n 2023-07-07 2023-07-07 Outpatient YVAN WORRELL MDA MDA [id number] 02:04:23 02:04:23 [place] o n 2023-07-07 2023-07-07 Outpatient YVAN WORRELL [facility] MDA [id number] 02:04:21 02:04:21 Dalton o n 2023-07-07 2023-07-07 Outpatient YVAN WORRELL [facility] MDA [id number] 02:04:20 02:04:20 Dalton o n 2023-07-07 2023-07-07 Outpatient YVAN WORRELL MDA MDA [id number] 02:04:18 02:04:18 Dalton o n 2023-07-07 2023-07-07 Outpatient YVAN WORRELL [facility] MDA [id number] 02:04:16 02:04:16 Dalton o n 2023-07-07 2023-07-07 Outpatient YVAN WORRELL MDA MDA [id number] 02:04:15 02:04:15 Dalton o n 2023-07-07 2023-07-07 Outpatient YVAN WORRELL MDA, MDA [id number] 02:04:13 02:04:13 Dalton o n 2023-07-07 2023-07-07 Outpatient YVAN WORRELL [facility] MDA [id number] 02:04:12 02:04:12 Dalton o n 2023-07-07 2023-07-07 Outpatient YVAN WORRELL MDA MDA [id number] 02:04:10 02:04:10 [place] o n 2023-07-07 2023-07-07 Outpatient YVAN WORRELL [facility] MDA [id number] 02:04:08 02:04:08 [place] o n 2023-07-07 2023-07-07 [facility] Yvan Ocampo 1.2.840.1 [id number] [facility] 01:55:00 02:00:00 Procedure 32835.1.1 it y of 3.412.2.7 [place] .3.448611 MD Sibley8 [facility] 2023-06-30 2023-06-30 Travel 1.2.840.1 1.2.604.494 [id number] [facility] 00:00:00 00:00:00 15259.1.1 350.1.13.41 ity of 3.412.2.7 2.2.7.3.698 [place] .3.065161 084.8 MD Sibley8 [facility] Results Test Description Test Time Test Comments Results Result Comments Source Pathology Outside Interpretation 2023-07-12 21:33:04 Test Item Value Reference Range Interpretation Comme nts Materials m4gljQIvJPLbhIGsOzRvSWBfQMKia4mcGOHccASqLnDcFtZhHdWyFlqmtWNtEXBvOvRqh0iha282pVGb p5jrHWCoJoX1iKXzHIQtoHYoV722HCWdKTmfp6snv1SmGUVvnEIui7X2LUMKtxhshVv8qNavF60sh8I8 FqktH1ppJFZbNLCmJ5WiZA9bWZKtMzy7PMK4PTM3LQS Received wGGPkS3OrZH3nWVFktNUmMVy0d2nqiSldFSRpHFD0e7zwNNhtniApJT5tse6wyCl9t8hbolWvXERpWXL roBPTVZJzX6IbwYbnHq1lbUh6qYbsXlnlNEH4Bpg4NB8dff44rqr2cRrbBAKjdlkmVlC9ANxmFLDkbrk uDOa4LZbpOVBwnVkrAMuvZIHbsratQZzqTJSkpZH1CG (test code PmuTTzV3XhWHPkEHvpXXVazng2LjHeQh1rySDtmVcuOWreh2ugj9hoeJPkCgr5MLDqSbAeIcnmCOpeq0 Xfj5qiTOJmhw0lFXP3cCHsiPhsx9N5tLWoZCCwsFEspdXjCEOanv98nXWvyUKvbQUgzz6xeoPzfJNavC UoOWG0rOKceiPeGEYxoSExFELiFU1kjBXtVYOuuI9et = 9973) zluJOFoVqMqwhlmOAVvrOytngPsBw8qvJclIMJ8GGwhI0kjmR8iVcQ6JOuzR4ozsC7oMYf3MRhqvRU1Q UBbuE1yHV0ptbjlm3gwEfAfSS0kpaerh1rbGhQiLJ3ecxt7d4wrRPE6NUzlKJSjIpD8bgY0EJRthMSqZ PDnjXrjGGbej752QWM6QuHcVSPhr5SiJ0DozCxdI32z fGzdE27oSXKtaLslwV8qaEwvfE5eMjXpYoZeHVa4yr55SWg3trikgExiCSz8pkPxVKAgWKS8CNLklBKx OOMoO2n7vkDqXSBjDNM2HGJrqIZzNWBdS3r9hoByCTJ2GPw2thRqPWYetGEspYXjEEUhDuIuiQPjCPQm XsLsRBGtmCUluOCwhHWckU0ebLopOXEpeTUuwT2mDYU 5OKLbbuquNdQdgXGeOLYeqHHndv94FZXdxzVohTSdnKcriYEgGMV3UMCfPVVwFNSkJIH1HWYbMzAyzmJ uKVzaqTNiNDBkJIPtKCGvCICbPMS7ZAVcFzKesjCyGTjewGVsUIRjDPGbVOKwTVZgDWM8ZEUzOlAxtaX dKKlhgSDeRNWyMSTzNFRwTTNvZXZ0IZYtYvDgypLqQK imeXXiHXEqADbqqZSkXFQ5Z2qbqBIfCVGpMGedzBEhFBSfB8qjaQNrCSwfBQNblXDzIlsnJUCgkTJpMa TrF4acXSAfZtZqW7VduOf9CDHsVKPzghDniDIacFwzzZZrUHH1JDRgFRJxUKFcSCF7CZVeCxFjxuGdEV wjmMPrKLDvIZEkTBWfPWNoHFU8UJUbSmBoepYeBZczt JVwRUXaIGUyRKKdVKRjAVB3VZMhQvKmooWxBSwjzPNcEYDyDVZjOWQvWNQjABS7BGJuDvChazPaMEqbb CDoOLLnKOxbdYRbMMK8M4cwfHNxRNXmKEffwCKpTIElX8pxzDIsVNgaHOWlyVEqCntkWEZvcONiFhZkC 7rpVKBvXwFhR1RzgRq9SqVzJYLyjdAtjWKwmWvyrUDf EIX6NHMgTAOwPUDwWZI8MOHtFpNhkpIyRHqowLQtLASgGQRvWPPhVKExETC8KWCkUzEnciWqBHigyLSg EZHjORFzBFZeKOUwUYP4FWOkKgDkwiOiUUikoUIgGPIyQMUpYYAqXYYjWPJ7EWIuYyTpefBvGFkfhXDw WNZnYDquvZLsAME7T4bjoLJmUSFjUCljbDAjBOIfK9j svPRkUOrjHDOfvZIeCicbAKHhnYQaGuDxG1fmSYXpEnXxO6TlvXm1ZjAySLPnubUwfD14Zxbfw5QaQPO pUCQ1GVnnHBhxzPjwfUEejnsqSBxbcxToJSatpswuLADsVBsqK6duWzShPNCnzUrzIXjkj7PcSHEjSIB jFqalhtJfDUInBAWnYIMklS0cYnvcG6RjwI1lDJzaMy klF3zjSRAkr0KeyC1zJQhrxAHkahrgQFvgkaFdRZoluspzYOUmYPahQ0naCfFzXGBtxYmfPWplw6QgNN YmIQEgDbhtakNiGXl3zrSlAIZhsWqfsGDjAJvawgNepTzxb6KsqnJczNbyZYWyHVm4ruOadbwqvHi1mM UzfVfhKRJevIoloM2uBmDsAuJmYOoxmTMgxbdxRJozf zXnQHplsvntFQUfIWkyM1utEwFnSIBbmYlaTPwhf7XkXZKwBLNmIzzwbfHwERLeA21daFPjjRNbNXTlV GmnCGIbPKSpLeEknJWrAyQcEoQegUkncSsmTPfwMeAgOJPlMHmhO5tuHyGeL2YhKSHfYlNovXJtH6hfF 1DisSsgJJCnSZbjhCVqTJCenZTzEUN7wYGkxoRazVAv zGOcNJDiRKvlWWV2lPZkiavkmDZffnykSZlbbgA9OTBoTOvhYBWqUJVlKjRbkOTiQtPgFcEmwXqxhSxs YJmzHcOxBCOsINlvC9awQcIkN5IrDLYtViKpMcQSXJCrkHKaITxpyCIkzqowDFgksbVlXQlqvdwaCXEz EXrnY8bzUoObSRRolFqlAWnhe1ChFUSjSDOtZdjoikD bYPj5kjOgJPJbnXweoN98Sfnysq07LKHfb1tvEQKoF6WxpWBoDOIalFKkWSsoCPchvMTeTOLmNmurVPE xgLJeKCQgPIqwzQIzFSNyZoUeFLDolBMwMVBuKIJuvKSeYWF3O4q3luPyZBGgCRw9pgOzPSVvIfXdjAF fOON6KMt1NabehlG1nWGjB6g7DzsgjgNbEVhccOSqto 72EGFzyxNorRQxuNrevGAgKIU5VIVwQXHhRGEiNQT3ZKOlNjOhooVxZDyxxWPwEVCiNOXvGCHcDZGzDI K0JZEjOpBrueGjAYqqkEYpYQSnKPJuABBcKALlBHW1SKMrAoBanpPfVLylnXAzGBXvSJEdUNFxNLKkLB I7RWCeAaNfskBcBSwepTHbRAJbEMgbfAHlDXJ7S0cur BMvZAMpSCqsoTOkTUPjP4vjdEKnZVqxKIIpqRZgMjmpSVUpdXNvSdTgQ4erYFPiStBfE3GbwLj4SFWmA KVlwwJcsGYdfSupzDAkWSL3JBNmJRIzKXOuDOI9QZLeXcMwntDzQUjqmYTrGFJnYBAeFRXoHESpOZM8M HViRuMpfbVjMYmpsSIwESAkCZAaLNInAVAaSKL2TPOv LaEloyRjQXofvJDwBFZiATDcDZThWNAyBWJ3QGSwWyFqmlDqJChnfPGkUTGjLRuxxXBzOXM6Z5arfDKh NGDbPJcydXYwPFOcZ9lzxSEuYFquBDEmjWOxGwhaRYSvqWSuFvVbG9bwKJOyJpEyZ6TevWz3WpHiEVZn rqRmxDZjnVrrzTGpAFL1JLXlWUVqDYCqQJB4RXCsUsA tlwIlNUwfkRGbCZBbKENrHLPxMONcNJL3UETvCkZtlbNdWMagtBJwHFUaKNZrHMNgOKJzFAE8OBOaLcQ jmiAqWSbhjVVgUXQyJKWjVDJsKANxWXB5BASzYqLhijOiKKiulJBfGBVdSGqopYHeRVJ0V6mjwPVtMDB eSSsyzWTqBJZrM0ospOCeGCaxYVKayNUsEghnUIVrqF KhFpPcM1cwMOXyXkIbC5SvvFm0LsYsWFSuktPnbQ71Rzadt5DtJUHaFIH3UIyyRBdchGxkgCGxqlqhYL hynyN6JCVnHElqVXFeTONmMmSwwYMcFdOqZzHriDwhzRizJRlbKgSjRAToZZfrX0oqPkHvB4DiIBKoRz FhRY1jOCArPcUuOMGyNujkDsxmLbCmT5SzSWBvNdiNZ 9iBBSCzSZIEU4nvhZXuztvgQXyxfyXyUPideiumQXHyAJtuO0doFeVcASKyrAnmWIkvx1JgRFKtWYVwQ brpyxZpKBf5ovHdJFAzhBmejFMcQUivmuWmwGhai2KghmEpbJnoADQaMERzMRFkYXohIUIjNQLkDfKud MekoO3oRfIpQeLnJUmaDU9rMCTgW5lojUMiGOXeKITh U6lrQfVyvF1kjHjqMIsuOqUeBrOrZNIgXR8uBrItHcTztJtgtE3vMaWvNzAqARymXS2iPRQpI0qvsROg QBCqSKCnF2rfWcOdzN5xrMxqKTglZhFyFnThZYqutMLqiEgmNSrvXLKjqfFvxA29Vmitv6EvJWDwNWM9 DJbzZTiqkJlduFGicvyjFJtqqmF5AUQyASvaNOUbHNV jFyKtkOKpOjVtXiTcgAnlhWxnYNkzGdVxBBRcXOhcY4bzPuUgS4JhYBHvSvHkWUGtLGdvLhUpY8ywgBV zkeetKDcuaaHaOOglyxptFUEyWSurS2ofHhHlXVTtkVusVDctt4EkGETkUNKuJfhgtuSrMVy5aaKzSDK ygHnbaW47Pwbore46AXDnyvDqj3InEKMzHIZ8RRkzQU ijyWeftHOnswepDYjhhzF5KFYnMHeqJBPfCGYnUhQafAJaVnOnYkAytJdevUybWQszEmBqQYQrGPkbV6 hcZjFcZnMyMFxwYXJ9 Diagnosis d3qxfNUaYERqpSIcFMKzIDxyweEbAKPpeZJsN4ZonljeXQreQR6bGV3jmFqlyAZfnINjILNbPoAli8ra j608sMJow1mbMLUAangobMk7jPnhR11ma2S0VustU4kwUGLmSLzlJYJiKMxkjIKrKEv0GOLrqKBwckQs XmVdGVGspPYcqNQ9RWBaBI4lvgrkGFyyBKsgHJSyegW (test code 2ZLVswMVlO5ZdITAxCX8lisqaEXC6FSpzWCAwQFL6XhNsVZZks6Fdjst9KnAnbXYgNNhodTSwfzbyvlJ bODZwDNXHqSdtdOhuk5P7p4kaWSEusZskIKDzBQJKLFNdWUIgPID8BefuZCDlGjRpNlFrSltbHUClu5e razG4RWLpQBJlXj0dqR53djbpoHXdOKMmDUiyIXHudQ = 35) g7PcVekUqcEmExHZ46BOC5SVWvIANrLLgjt8LeAP0peLItGJsmwBWfzXIhJD7gCQFoqW8pHC16POSdNj dhCKIauPOeLDlxDpW7TVphbY81HhYkbZsiUsI8RFXRVPIDA0BLHVlUAY7RQTQODLLMXBwhODgTKmUMNQ 7XNCTQYQVwNRTDEl5YVRGFAG9YCHToGN8RV8iMMG2OY S7DSJUVQG4gCYDILH8CXUlEISNPHNOVJI8FSyrBDWDHIDMHC3SWSy8vhSVjSNcxCUF9JSjllPEqpKygK UC2JFhoWAPkXoFplL0jkBWyDBK1ZeXaSCQutiFvQUUiYJFnNCloONSlpVUkSWrmKfEaNLpdbvagQWVWl 5U0BIJgv6N9UEprtBJzxQBxXN8ujUNlgcKmieVsrUMi FBOqMY9xENPmTEVzCc2hZIztHVJnjKYvHZiqQEU0HOnovC4zEYHmEVZgzQmemKqyvyF0dTLiRTM6tcTz jJAzg0RalQAqaGGgWUhkZtDtXVlxxsreHKomYVLfM86luQgmpZ47IKQ8wD2bJMEpLWPttBXdmRSbGYgB RlUaIFY3vvNXFuftPHuciGUdHSCjkniwaFI8QVSmcKe nJKV8AJQOENKPC8IICCiXGL2ZQTHCPOVYPYizMP1hYE7KMynNGMAHKzBZGpRFIKaAHMJYTY5YU3cJM6S WENBYYB8ZD9FRA1jBP01KFZcFNz5IHcwOCuNITIXwV59JFeOHSG9jiHFeIXGsG5Lme51fwRCczTejMX1 uVGZaqxWIBDwwZO94OD4hGDSoFXzhWBNcx8EkSArhpL ufFsjhfi45bdQuYRYzd7s0yNVbRV9bVTDkqtVdaz8jSNPmMRNchAftuKDiSrtkJFDqeCTaPYsiGuGnEU tunlpfYQLPcsPqlFFkiwByRkUeiQ9boOHsZGH5FdPcVMOpG7v5AEeZPkQvTQR9puOTZzAwTKdvwDTcXY BhclxsaTIxNjBcZmktNzIwXGxpbjIxNjAgTUVUQVNUQ IDLAsDNK2NYVnISQZnVQECOLsPJIwXXLOlVYLSOHHXXRZ1BN2JHL3uRK00TPOuAZEvbQZZKSH0BSQAqP qJHGSBTLQGsXK4PX7oNSW0BWM5DZFQIGR2bTPEPJV1PLRmWVQ1yvQLdIMMijDwrcTcvhkQ3mMYbACE1a gAbgZWcc6RpwJXeDIHavqtfDPAboQa5VzGdRjcoDRmr yxhtSNTUrFCgpPOwYTQua0HzxhqoevCuCRTxLMmeZMXxEI4jRNehMKIgxRBiIYawIeS8BRsmdL89LfQy eAarQuZ0BXGBWVYUO8SBKMuOKW8HRFBXMDFBIAzsBXqWHhVYMA6XQHGYNPEjWGHXUr2HRLIJZZ3QDJJm GP1VK6pVVT0MNBGNZeTUAYMSCx3ZI6QBAhRnFViLC5X QSNYFFXBJPWGIRAMjMVFaqfbvtWK0VHKeFnwsXQkvoyB6REZtnTWiCRohKzWfAMqfelhdPMEWl5stCOL oWbRijPzuEYziw2TxfAYxM3YnWHaEQrInGTG6skKHXgMkCMdbbVNmXGCbbwzlvFB3UIDqpNvfQUS5GKN BIEQFC2RILOqPTJ9RRSHGVYVQQFxiAPvAHuTYFN5PGC KCNYMdCXHOZr8LMXLJAW3PMATtFW9WM9gOHF3LPIXGTOCyKTvTH5NEOwiiMKKxTbS9MX8jT3Vxn7scMP HpHZCkh7XgeHyqBUMiBLhoE8zakjPvV1KhcKIoMORyqHfbpu0tLERwvkfzbHGspJabEZzrKIVsBBwnGQ oST8GGZOlnQWLfyRXtFBamYPN9 Biomarker b4hhkQOzDWKvrBXsDENbOFwzmyYhFAIkmSWpH4PnhaijRObzZI0eKX7xrRpehDNsuXErBUPgCeVpd6nf q011yLEfa6ivHHSVigzraHx0wNztI05ib3Z3DrxtP88xwBJfSQJ4OFZrJZZarPFrVAYgVDN9OXFqpZXx W5aqHJOhXB5cauuiOMvvYPlyNMFavJX0GNAmxNGuP3E Block(s) oRYYkABpgYYUxofv9AaSfDs7ipPBykIqxMYxkKWMzFWAmOOumMAYjUdYdBCE0AQP7CNGkEbPlXLAwo9A jnzFksf3wJRB0jB3gcuDjdE4dxptmFBtcpXGlSR9dlu6soMjgIyCzgHHmrY== (test code = 9841) Disclaimer t8rydZUwRJHwqIIzSkUbRGEjIKQrt8ilTAVztZThAcWdCpLiQqGwZnwayLGzMKHkGgGkk8zai656qHSa n5exCCXfSuI1eTFxHTVmvHIrR681ZBJeVEmrv5did2DjBEOowPSiv3A8CKOPqrsfkUp8wPjoC85uv6F4 XsnnH1ezQPXpHAGdO6MkLL6yHKQcJxj8APE5STG2BXN (test code rXRRiY5NtBG3qWXXzqTCtAQl3h2xbjKmmDMEwAUS1w6poKEmzlsAgWI9luz3smDy1a4ojfyInSQDwNEV nhHWBNGBrY1CsxMfaTa9cqZb9jDgzTnyeUDE6Dbm7BK4szf54fxy3mRzyKQGajbxlLtU8UXhnMUNouei lHZj2RBzeFMZrbTR1KGPulEYkH3HxJSUaBH2hpyc3CI = 9844) R0RYdzITTfXhB9JWXqkYSoKFWonZhlWExqj611GXG7PsDmBJ6yI8Yck2Y4jI0czSMaRAJieZBkLwNjPW Mbky1fgPYuOQsrz8IqMFV9orL9qUOguULwZUFlNE04Kimai4KgFnvqQWJ6TGHkiqTdd1Mxo8ycOlNtif RvW4ynX8ZhKCIzRBBsDCXxTeUeytZex3Drc8LuhYYyu Zp2b7cvDDXqDFRrzMxvm2qbFXO8PGVnD2L0mESfa4mtSGxeFGHshBG4qsP4WAVihJRpP3EceV2vKBSiK A8ceze9g3qxVYF9ZBwvHGPbOqG0pnY9WBQrmCZdGRDrrVryYJjtp947NOD4ZrDaJMEeh5JkL2GgkPgjV 27fqUlcL60uJPVnwAvogC3nrClfnI0jJvQuUwNePPss yKuzaABdvssaCYqoaeF1LIhbmpzkVODrJQgfK9zuUwDyKAAvzXdtTPekc8DgATMsZQQrEztfolZ0JUPK m32kYOQgh6LuOBDbfA1ejOQnXZehgmVwtAO3KYdbkvEbKwQpaeRzLXHxzU4vVNWbZT6mQOLnrfGjud0s bsIeAKFxSXKmB3PfyesgpQnggqUjXVVeju6tqrKzGQR 7YYCASU6FUMIaEROpd93gAADrjHdbkT3teSWhhtZyPAGqu6BxeU3nhEKUZYPoG8ceYQ5fDHhzh4FpjHC ldNUyaHF8TAKgh9OkGqLpokGiuBSfwWDdM2TgeQnrE1fzNPIyTSNnauYvhVQct4XxFWTfmUS8hZSyLG7 MNwNMe64jNQNqZUYZphCeCKSbpHqhdJU1ofV0bU5wSd LQPbMquPEmsSLzTqmzXUCgh617kn3simJ9UWSyIPIxoumnr0DzSTSrUTPixX37EIEwCTWfyj6ftekouB VwqrZrD1Wdfwt2mW7hCGWgWIxpRJAlJFFoKlBivANgYfItKoShhXoyaYrtULmfKtZbIAIgDVewC9gtJb FcZnMyMlxwYXJ9 [facility] [place]
[2023-08-29] MEDS ORDERED: ONDANSETRON 4 MG/2 ML VIAL ONE (06:43)
[2023-08-29] MEDS ORDERED: NA CHLORIDE 0.9% 1,000 ML ONE (06:53)
[2023-08-29] MEDS ORDERED: MORPHINE 4 MG/ML SYR ONE (06:53)
[2023-08-29 06:54] LABS: Absolute Lymphocytes (CBC) 1.5 K/uL (0.7-4.9); Hematocrit 31.5 % (36.0-45.0); Lymphocytes % 26.9 % (15.3-44.8); MPV 7.5 fL (7.6-11.3); Platelets 251 thou/uL (152-406); RBC Red Blood Cell Count 3.98 M/uL (3.86-4.86)
[2023-08-29 06:55] LABS: Specific Gravity 1.026 (1.005-1.030)
[2023-08-29 06:57] LABS: Specific Gravity 1.026 (1.005-1.030); Transitional Epithelial <5 /HPF (None Seen); Urine Bacteria <20 /HPF (<20); Urine Bilirubin NEGATIVE (Negative); Urine Blood Negative (Negative); Urine Clarity Turbid (Clear); Urine Color Light-Yellow (Yellow); Urine Glucose NEGATIVE (Negative); Urine Mucus Slight /HPF (None Seen); Urine Protein NEGATIVE (Negative); Urine RBC <5 /HPF (None Seen); Urine Urobilinogen Normal (Normal); Urine pH 6.5 (5.0-7.0)
[2023-08-29 07:17] LABS: ALT/SGPT 17 U/L (13-56); AST/SGOT 11 U/L (15-37); Albumin 3.4 g/dL (3.4-5.0); Alkaline Phosphatase 72 U/L (45-117); BUN Blood Urea Nitrogen 11 mg/dL (7-18); Bicarbonate 27 mEq/L (21-32); Bilirubin Total 0.2 mg/dL (0.2-1.0); Glomerular Filtration Rate 106 ml/min (=/>90); Glucose Level 104 mg/dL (74-106); Lipase 20 U/L (13-75); Potassium 3.9 mEq/L (3.5-5.1); Protein, Total 6.9 g/dL (6.4-8.2); Sodium Level 140 mEq/L (136-145)
[2023-08-29 07:18] LABS: C-Reactive Protein < 2.90 mg/L (<3.00)
[2023-08-29] MEDS ORDERED: KETOROLAC 30 MG/ML INJ ONE (07:34)
--- NOTE | 2023-08-29 08:21 | RAD REPORT ---
EXAM DESCRIPTION: CT - Abdomen Pelvis W Contrast - 08/29/2023 7:43 am CLINICAL HISTORY: ABD PAIN COMPARISON: No comparisons TECHNIQUE: Thin cut axial CT imaging of the abdomen and pelvis was performed following intravenous a dministration of 100 mL Isovue 300. Multiplanar reformats were generated and reviewed. All CT scans are performed using dose optimization technique as appropriate and may include automated exposure control or mA/KV adjustment according to patient size. FINDINGS: No suspicious findings in the lung bases. The liver, spleen, adrenal glands, and pancreas show no suspicious findings. Gallbladder and biliary tree are also without suspicious finding. Symmetric renal function is seen with no hydronephrosis or suspicious renal mass. No dilated bowel loops. Mild wall thickening of the transverse and proximal descending colon. No free air, free fluid or inflammatory stranding. No hernia, mass or bulky lymphadenopathy. The urinary denzel dder is without significant finding. No suspicious bony findings. IMPRESSION: Mild wall thickening of the transverse and proximal descending colon, may relate to subo ptimal distention or mild colitis.
--- NOTE | 2023-08-29 08:50 | ER ---
Nurse's Notes [facility] Name: Deepthi Haley Age: 32 yrs Sex: Female : 1990 Arrival Date: 08/29/2023 Time: 05:53 Bed 7 Private MD: Diagnosis: Colitis Presentation: 08/29 06:12 Chief complaint: Patient states: BLQ PAIN x2 DAYS WITH NAUSEA/VOMITING/CONSTIPATION. bp Coronavirus screen: At this time, the client does not indicate any symptoms associated with coronavirus-19. Ebola Screen: No symptoms or risks identified at this time. Initial Sepsis Screen: Does the patient meet any 2 criteria? No. Patient's initial sepsis screen is negative. Does the patient have a suspected source of infection? No. Patient's initial sepsis screen is negative. Risk Assessment: Do you want to hurt yourself or someone else? Patient reports no desire to harm self or others. Note LAST CHEMO x5 DAYS AGO, R SC PORT-A-CATH. Onset of symptoms is unknown. 06:12 Method Of Arrival: Ambulatory bp 06:12 Acuity: COLTON 3 bp Triage Assessment: 06:14 General: Appears uncomfortable, Behavior is calm, cooperative, appropriate for age. bp Pain: Complains of pain in abdomen. GI: Reports constipation, nausea, vomiting. 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 - Social history:: Smoking status: Patient denies any tobacco usage or history of. - Family history:: not pertinent. - Code Status:: Full code. Screenin:22 [facility] ED Fall Risk Assessment (Adult) History of falling in the last 3 months, ph including since admission No falls in past 3 months (0 pts) Confusion or Disorientation No (0 pts) Intoxicated or Sedated No (0 pts) Impaired Gait No (0 pts) Mobility Assist Device Used No (0 pt) Altered Elimination No (0 pt) Score/Fall Risk Level 0 - 2 = Low Risk Oriented to surroundings, Maintained a safe environment, Provided non-skid footwear, Hourly rounding (assess needs \T\ fall precautionary measures) done. Abuse screen: Denies threats or abuse. Denies injuries from another. Nutritional screening: No deficits noted. Tuberculosis screening: No symptoms or risk factors identified. Assessment: 06:40 General: Appears uncomfortable, Behavior is calm, cooperative, appropriate for age. la4 07:28 Reassessment: Patient and/or family updated on plan of care and expected duration. Pain tm6 level reassessed. Pain: Complains of pain in abdomen Pain currently is 7 out of 10 on a pain scale. Quality of pain is described as crampy. 08:58 Reassessment: Patient appears in no apparent distress at this time. No changes from tm6 previously documented assessment. Patient and/or family updated on plan of care and expected duration. Pain level reassessed. Patient states feeling better. 08:58 GI: Bowel sounds present X 4 quads. Abd is soft and non tender. tm6 Vital Signs: 06:12 BP 155 / 108; Pulse 64; Resp 16; Temp 98.7; Pulse Ox 100% ; Weight 61.69 kg; Height 5 bp ft. 8 in. ; 06:40 BP 149 / 99; Pulse 70; Resp 20; Pulse Ox 100% on R/A; Pain 8/10; la4 07:28 BP 149 / 92; Pulse 56; Resp 18; Pulse Ox 100% ; Pain 7/10; tm6 08:21 BP 149 / 97; Pulse 58; Resp 18; Pulse Ox 100% on R/A; ph 08:49 Pain 0/10; tm6 06:12 Body Mass Index 20.68 (61.69 kg, 172.72 cm) bp 06:40 Pain Scale: Adult la4 07:28 Pain Scale: Adult tm6 08:49 Pain Scale: Adult tm6 Vitals: 06:40 Cardiac Rhythm Assessment Regular Sinus roxnaa. la4 Yaakov Coma Score: 06:40 Eye Response: spontaneous(4). Motor Response: obeys commands(6). Verbal Response: la4 oriented(5). Total: 15. ED Course: 05:58 Patient arrived in ED. gm2 06:14 Triage completed. bp 06:14 Arm band placed on. bp 06:23 Ji Ortiz MD is Attending Physician. sp4 06:28 Sapphire Ogluin RN is Primary Nurse. nw1 06:39 Placed in gown. Bed in low position. Call light in reach. Side rails up X2. Adult w/ la4 patient. Provided Education on: Plan of care. Client placed on continuous cardiac and pulse oximetry monitoring. NIBP monitoring applied. 06:39 No provider procedures requiring assistance completed. la4 06:41 Inserted saline lock: 20 gauge in right antecubital area, using aseptic technique. oe Blood collected. 06:42 CBC with Diff Sent. oe 06:42 CMP Sent. oe 06:42 Lipase Sent. oe 06:42 Test, Urine Sent. oe 06:42 Urinalysis w/ reflexes Sent. oe 07:23 Attending Physician role handed off by Ji Ortiz MD rt 07:23 Dhruv Burt MD is Attending Physician. rt 07:44 CT Abd/Pelvis - IV Contrast Only In Process Unspecified. EDMS 08:59 IV discontinued, intact, bleeding controlled, No redness/swelling at site. Pressure tm6 dressing applied. Administered Medications: 06:43 Drug: morphine IVP or IV 4 mg IVP once over 4 mins Route: IVP; Infused Over: 4 mins; nw1 Site: right antecubital; 06:44 Drug: Ondansetron IVP 4 mg IVP once; over 2 minutes Route: IVP; Site: right antecubital;nw1 06:44 Drug: NS 0.9% IV 1000 ml IV at 125 ml/hr continuous Route: IV; Rate: 125 ml/hr; Site: nw1 right antecubital; 08:50 Follow up: Response: No adverse reaction; IV Intake: 1000ml tm6 07:30 Drug: Ketorolac IVP 30 mg IVP once Route: IVP; Site: right antecubital; tm6 08:50 Follow up: Response: No adverse reaction tm6 Medication: 08:22 VIS not applicable for this client. ph Intake: 08:50 IV: 1000ml; Total: 1000ml. tm6 Outcome: 08:50 Discharge ordered by . rt 08:58 Discharged to home ambulatory, with family, tm6 08:58 Condition: stable 08:58 Discharge instructions given to patient, family, Instructed on discharge instructions, follow up and referral plans. medication usage, Demonstrated understanding of instructions, follow-up care, medications, Prescriptions given X 2, 08:59 Patient left the ED. tm6 Signatures: Dispatcher [employer] Haven Fisher, RN RN ph Nascimento, Erich Baker, RN RN bp Dhruv Burt MD MD rt Ji Ortiz MD MD sp4 Yusra Michelle 2 Chapin Steven RN RN tm6 Brisa Rodriguez, RN RN la4 Sapphire Olguin RN RN nw1
--- NOTE | 2023-08-29 08:50 | EDPHYS ---
Physician Documentation [facility] Name: Deepthi Haley Age: 32 yrs Sex: Female : 1990 Arrival Date: 08/29/2023 Time: 05:53 Bed 7 Private MD: REINA Physician Dhruv Burt HPI: 08/29 06:23 This 32 yrs old Black Female presents to ER via Ambulatory with complaints of Abdominal sp4 Pain, Pt states she has stage 4 cancer and is in alot of abd pain. 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 Patient is undergoing chemotherapy at [facility]. Her chemotherapy session #5 was finished on 08/23/2023. Yesterday patient developed worsening mid abdominal pain that has increased overnight associated with some nausea. Reports pain is now 10 out of 10 as in mid abdominal location. Patient's [facility] oncologist is Dr. Jaden Isaac . 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 - Social history:: Smoking status: Patient denies any tobacco usage or history of. - Family history:: not pertinent. - Code Status:: Full code. ROS: 06:29 Constitutional: Negative for fever, chills, and weight loss, that of abdominal pain, sp4 positive nausea 06:29 All other systems are negative, Exam: 06:29 Constitutional: This is a well developed, well nourished patient who is awake, alert, sp4 and in no acute distress. Head/Face: Normocephalic, atraumatic. Eyes: Pupils equal round and reactive to light, extra-ocular motions intact. Lids and lashes normal. Conjunctiva and sclera are not injected. Cornea within normal limits. Periorbital areas with no swelling, redness, or edema. ENT: Nares patent. No nasal discharge, no septal abnormalities noted. Tympanic membranes are normal and external auditory canals are clear. Oropharynx with no redness, swelling, or masses, exudates, or evidence of obstruction, uvula midline. Mucous membranes moist. Neck: Trachea midline, no thyromegaly or masses palpated, and no cervical lymphadenopathy. Supple, full range of motion without nuchal rigidity, or vertebral point tenderness. Chest/axilla: Normal chest wall appearance and motion. Nontender with no deformity. No lesions are appreciated. Cardiovascular: Regular rate and rhythm with a normal S1 and S2. No gallops, murmurs, or rubs. Normal PMI, no JVD. No pulse deficits. Respiratory: Lungs have equal breath sounds bilaterally, clear to auscultation and percussion. No rales, rhonchi or wheezes noted. No increased work of breathing, no retractions or nasal flaring. Abdomen/GI: Soft, , with normal bowel sounds. No distension or tympany. No guarding or rebound. Positive diffuse abdominal tenderness without peritoneal signs Back: No spinal tenderness. No costovertebral tenderness. Skin: Warm, dry with normal turgor. Normal color with no rashes, no lesions, and no evidence of cellulitis. MS/ Extremity: Pulses equal, no cyanosis. Neurovascular intact. Full, normal range of motion. Neuro: Awake and alert, GCS 15, oriented to person, place, time, and situation. Cranial nerves II-XII grossly intact. Motor strength 5/5 in all extremities. Sensory grossly intact. Psych: Awake, alert, with orientation to person, place and time. Behavior, mood, and affect are within normal limits Vital Signs: 06:12 BP 155 / 108; Pulse 64; Resp 16; Temp 98.7; Pulse Ox 100% ; Weight 61.69 kg; Height 5 bp ft. 8 in. ; 06:40 BP 149 / 99; Pulse 70; Resp 20; Pulse Ox 100% on R/A; Pain 8/10; la4 07:28 BP 149 / 92; Pulse 56; Resp 18; Pulse Ox 100% ; Pain 7/10; tm6 08:21 BP 149 / 97; Pulse 58; Resp 18; Pulse Ox 100% on R/A; ph 08:49 Pain 0/10; tm6 06:12 Body Mass Index 20.68 (61.69 kg, 172.72 cm) bp 06:40 Pain Scale: Adult la4 07:28 Pain Scale: Adult tm6 08:49 Pain Scale: Adult tm6 Yaakov Coma Score: 06:40 Eye Response: spontaneous(4). Motor Response: obeys commands(6). Verbal Response: la4 oriented(5). Total: 15. MDM: 06:24 Patient medically screened. sp4 06:29 Differential Diagnosis altered mental status, sepsis, flu. Data reviewed: vital signs, sp4 nurses notes, old medical records, lab test result(s), radiologic studies, CT scan. Consideration of Admission/Observation Escalation of care including admission/observation considered. 07:22 Transition of care: After a detail discussion of the patient's case, care is sp4 transferred to Dhruv Burt MD. 09:14 ED course: Assumed care at shift change, reevaluated patient, is feeling better after rt medications, CT shows mild colitis, labs are benign. Will treat antibiotics, pain medications. Patient has a telemedicine appoint with [facility] today, she will follow-up with them as appropriate, return precautions discussed.. 08/29 06:23 Order name: CBC with Diff; Complete Time: 07:05 sp4 08/29 06:23 Order name: CMP; Complete Time: 08:22 sp4 08/29 06:23 Order name: Lipase; Complete Time: 08:22 sp4 08/29 06:23 Order name: Test, Urine; Complete Time: 07:05 sp4 08/29 06:23 Order name: Urinalysis w/ reflexes; Complete Time: 07:05 sp4 08/29 06:24 Order name: CRP; Complete Time: 08:22 sp4 08/29 07:01 Order name: Urine Culture EDUT 08/29 06:23 Order name: CT Abd/Pelvis - IV Contrast Only; Complete Time: 08:22 sp4 08/29 06:23 Order name: IV Saline Lock; Complete Time: 06:42 sp4 08/29 06:23 Order name: Labs collected and sent; Complete Time: 06:42 sp4 Administered Medications: 06:43 Drug: morphine IVP or IV 4 mg IVP once over 4 mins Route: IVP; Infused Over: 4 mins; nw1 Site: right antecubital; 06:44 Drug: Ondansetron IVP 4 mg IVP once; over 2 minutes Route: IVP; Site: right antecubital;nw1 06:44 Drug: NS 0.9% IV 1000 ml IV at 125 ml/hr continuous Route: IV; Rate: 125 ml/hr; Site: nw1 right antecubital; 08:50 Follow up: Response: No adverse reaction; IV Intake: 1000ml tm6 07:30 Drug: Ketorolac IVP 30 mg IVP once Route: IVP; Site: right antecubital; tm6 08:50 Follow up: Response: No adverse reaction tm6 Disposition Summary: 08/29/23 08:50 Discharge Ordered Notes: Location: Home rt Problem: new rt Symptoms: have improved rt Condition: Stable rt Diagnosis - Colitis rt Followup: rt - With: Private Physician - When: Today - Reason: Discharge Instructions: - Discharge Summary Sheet rt - Colitis rt Forms: - Medication Reconciliation Form rt - Thank You Letter rt - Antibiotic Education rt - Prescription Opioid Use rt - Patient Portal Instructions rt - Leadership Thank You Letter rt Prescriptions: - acetaminophen-codeine 300-30 mg Oral tablet - take 1 tablet ORAL route every 6 hours; 21 tablet; Refills: 0, Product rt Selection Permitted - Augmentin 875-125 mg Oral Tablet - take 1 tablet ORAL route every 12 hours for 10 days; 20 tablet; Refills: 0, rt Product Selection Permitted Signatures: Dispatcher [employer] Erich Briceno, RN RN bp Dhruv Burt MD MD rt Ji Ortiz MD MD sp4 Chapin Steven RN RN tm6 Brisa Rodriguez RN RN la4 Sapphire Olguin RN RN nw1
[2023-08-29 09:13] VITALS: TEMP 98.7; O2SAT 100
[2023-08-29 09:25] VITALS: BP 149/97
== END 2023-08-29 08:59 | disposition home or self-care (01) ==
LOC: ER 05:53
DX: K52.9 Noninfective gastroenteritis and colitis, unspecified (principal); C34.90 Malignant neoplasm of unspecified part of unspecified bronchus or lung
CPT/HCPCS: 87088; 85025; 81001; 87086; 36415; 81025; 83690; 80053; 86140; 74177; 96375; 96374; 99284; Q9967; J2405; J7030